=== PATIENT | male | born 1955 | race Hispanic/Latino ===

== ENCOUNTER 2019-03-02 06:32 | Day surgery (SDC) | payer OTHER ==
[2019-02-25 10:01] LABS: Absolute Monocytes 0.5 K/uL (0.1-1.3); Absolute Neutrophil 3.4 K/uL (1.8-8.0); Basophils % 0.4 % (0-1.3); Eosinophils % 1.1 % (0-4.4); Hematocrit 49.6 % (39.6-49.0); Lymphocytes % 19.5 % (15.3-44.8); MPV 8.1 fL (7.6-11.3); Monocytes % 10.4 % (3.3-12.3); RBC Red Blood Cell Count 5.52 M/uL (4.33-5.43)
[2019-02-25 10:06] LABS: Protime INR 1.02
[2019-02-25 10:20] LABS: Potassium 4.3 mmol/L (3.5-5.1)
--- NOTE | 2019-02-25 12:49 | EKG ---
Test Date: 2019-02-25 Test Time: 08:54:40 Hamper Maker: BEAU MEASUREMENT RESULTS: Intervals: Rate: 60 MA: 178 QRSD: 86 QT: 398 QTc: 398 [place]: P: 61 MA: 178 QRS: 43 T: 47 INTERPRETIVE STATEMENTS: Normal sinus rhythm Normal ECG Compared to ECG 01/06/1992 10:31:00 No significant changes Electronically Signed On 02-25-19 12:48:05 CDT by Sanjay Mujica
--- OUTSIDE RECORDS SUMMARY | 2019-03-02 06:36 | XMS REPORT ---
:1955 Author Organization eClinicalWorks Care Team Providers Name Role Phone Fabio Garcia Provider Role Unavailable Allergies No Known Allergies Problems Problem Type Condition Code Onset Dates Condition Status Problem Primary osteoarthritis of left knee M17.12 Active Problem Loose body in knee, left knee M23.42 Active Medications Medication Code System Code Instructions Start End Date Status Dosage Date [facility] [place] 11289399700 7.5-325 MG February 24, March 06, Active 1 tablet Orally every 2018 as needed hrs Results No Known Results Summary Purpose eClinicalWorks Submission
--- OUTSIDE RECORDS SUMMARY | 2019-03-02 06:36 | XMS REPORT ---
:1955 Author Organization eClinicalWorks Care Team Providers Name Role Phone Fabio Garcia Provider Role Unavailable Allergies No Known Allergies Problems Problem Type Condition Code Onset Dates Condition Status Problem Primary osteoarthritis of left knee M17.12 Active Medications No Known Medications Results No Known Results Summary Purpose eClinicalWorks Submission
--- OUTSIDE RECORDS SUMMARY | 2019-03-02 06:36 | XMS REPORT ---
:1955 Author Organization eClinicalWorks Care Team Providers Name Role Phone Fabio Garcia Provider Role Unavailable Allergies, Adverse Reactions, Alerts Substance Reaction Event Type N.K.D.A. Info Not Available Non Drug Allergy Problems Problem Type Condition Code Onset Dates Condition Status Problem Primary osteoarthritis of left M17.12 Active knee Problem Loose body in knee, left knee M23.42 Active Assessment Tear of medial meniscus of left S83.242A Active knee, current, unspecified tear type, initial encounter Assessment Loose body in knee, left knee M23.42 Active Assessment Pain, joint, knee, left M25.562 Active Assessment Primary osteoarthritis of left M17.12 Active knee Medications Medication Code Code Instructions Start End Status Dosage System Date Date MetFORMIN HCl ER [facility] 05673395820 750 MG Orally b , Active 1 tablet Once a day 2019 with evening meal Aspir-81 ND 27490003058 81 MG Orally b , Active 1 tablet Once a day 2019 Testosterone ND 83056273773 200 MG/ML Active not Cypionate Intramuscular defined GlipiZIDE ER ND 53375790049 5 MG Oral Active not defined Losartan ND 09873077744 50-12.5 MG b 25, Active 1 tablet Potassium-HCTZ Orally Once a 2019 day Results No Known Results Summary Purpose eClinicalWorks Submission
--- OUTSIDE RECORDS SUMMARY | 2019-03-02 06:36 | XMS REPORT ---
:1955 Author Organization eClinicalWorks Care Team Providers Name Role Phone Fabio Garcia Provider Role Unavailable Allergies, Adverse Reactions, Alerts Substance Reaction Event Type N.K.D.A. Info Not Available Non Drug Allergy Problems Problem Type Condition Code Onset Dates Condition Status Assessment Pain, joint, knee, left M25.562 Active Problem Primary osteoarthritis of left M17.12 Active knee Assessment Primary osteoarthritis of left M17.12 Active knee Assessment Tear of medial meniscus of left S83.242A Active knee, current, unspecified tear type, initial encounter Medications Medication Code Code Instructions Start End Status Dosage System Date Date MetFORMIN HCl ER [facility] 22668742883 750 MG Orally b , Active 1 tablet Once a day 2019 with evening meal Aspir-81 ND 46089983959 81 MG Orally Jan 24, Active 1 tablet Once a day 2019 Testosterone ND 72408845525 200 MG/ML Active not Cypionate Intramuscular defined GlipiZIDE ER ND 66114012617 5 MG Oral Active not defined Losartan ND 86816170591 50-12.5 MG b , Active 1 tablet Potassium-HCTZ Orally Once a 2019 day Results Name Result Date Reference Range Unit Abnormality Flag MRI : Knee, left Summary Purpose eClinicalWorks Submission
[2019-03-02] MEDS ORDERED: CEFAZOLIN/SWI 1gm 1 GM/10 ML SYR ONE ×2 (07:00→08:03)
[2019-03-02] MEDS ORDERED: NA CHLORIDE 0.9% 1,000 ML ONE ×2 (07:00→08:25)
[2019-03-02] MEDS ORDERED: DEXAMETHASONE 10 MG/ML VIAL ONE (07:19)
[2019-03-02] MEDS ORDERED: LIDOCAINE 2% MPF 5 ML VIAL ONE (07:19)
[2019-03-02] MEDS ORDERED: FENTANYL CITR 100 MCG/2 ML ONE (07:19)
[2019-03-02] MEDS ORDERED: PROPOFOL 200 MG/20 ML VIAL IV ONE (07:19)
[2019-03-02] MEDS ORDERED: MIDAZOLAM HCL 2 MG/2 ML INJ ONE (07:19)
[2019-03-02] MEDS: BUPIVACAINE 0.25% PF 10 ML VIAL ONE ×2 (07:59→08:32)
[2019-03-02] MEDS ORDERED: KETOROLAC 30 MG/ML INJ ONE (08:43)
--- NOTE | 2019-03-02 08:52 | P.BOP ---
Preoperative diagnosis: left knee medial meniscus tear, left knee loose body with osteoarthritis Postoperative diagnosis: same Primary procedure: left knee arthroscopic partial medial meniscectomy Secondary procedure: left knee arthroscopic removal of loose body Pearl Cutter: NONE,NONE Estimated blood loss: 5 cc Specimen: none Findings: see dictation Anesthesia: General Complications: None Implants: none Fluids & blood products: per anesthesia; TT: 42 mins @ 300 mmHg Transferred to: Recovery Room Condition: Good
[2019-03-02] MEDS ORDERED: Ringers Lactate 0 ML IV ONE (09:06)
[2019-03-02] MEDS ORDERED: HYDROCODONE/APAP 5/325 MG TAB ONE (09:43)
--- NOTE | 2019-03-02 20:28 | OP ---
Date of Procedure: 03/02/2019 Surgeon: Fabio Garcia MD Preoperative Diagnoses: 1.Left knee medial meniscus tear. 2.Left knee intraarticular loose body. Preoperative Diagnoses: 1.Left knee medial meniscus tear. 2.Left knee intraarticular loose body. Procedures Performed: 1.Left knee arthroscopic partial medial meniscectomy. 2.Left knee arthroscopic removal of loose body. Anesthesia: General LMA. Fluids: Per Anesthesia record. Estimated Blood Loss: Less than 5 cc. Tourniquet Time: 42 minutes at 300 mmHg. Indication For Procedure: Oskar is a 64-year-old male, who presented to my clinic with signs and sympt oms consistent with a medial meniscus tear as well as intra-articular loose body. MRI demonstrated l oose body found within the suprapatellar pouch. I discussed with the patient at length risks and kiki efits associated with operative and nonoperative treatment. Given his mechanical symptoms and loose body demonstrated on MRI, I recommended operative treatment. He expressed understanding and has elec anselmo to proceed with surgical treatment. Description Of Procedure: After informed consent was obtained, the patient was identified in the pre operative holding area. The left lower extremity was marked. The patient was then taken back to the operating room, transferred to the operative table in supine fashion, placed under general LMA anest hesia. The left lower extremity was then prepped and draped in usual sterile fashion. A time-out wa s initiated. The correct patient and procedure were confirmed and identified. The patient did recei ve his preoperative prophylactic antibiotics. The left lower extremity was exsanguinated using an Es march and the tourniquet was inflated to 300 mmHg. Standard anteromedial and anterior lateral portal s were created. Arthroscope was brought into the anterolateral portal and a diagnostic arthroscopy w as performed. The arthroscope was first brought into the patellofemoral joint where the patient was noted to have grade 3-4 chondromalacic changes of the trochlear groove and undersurface of the patell a. The arthroscope was brought into medial gutter. There were no loose bodies found within the gutt er. The arthroscope was then brought into the medial compartment. The patient was noted to have gra de 3 chondromalacic changes noted of his medial femoral condyle and medial tibial plateau. There was a complex tear of the posterior horn of the medial meniscus. A partial medial meniscectomy was perf ormed using meniscal biters and arthroscopic shaver to smooth meniscal borders. Next, the arthroscop e was brought in the intercondylar notch. The patient was noted to have an intact ACL and PCL. The arthroscope was then brought in the lateral compartment where the patient was noted to have an intact lateral meniscus, and no significant chondromalacia changes over the lateral femoral condyle and lat eral tibial plateau. The arthroscope was then brought in the lateral gutter where the patient was no anselmo to have a loose body. The arthroscope was then brought through the anterior medial portal and us ing an arthroscopic grasper, the loose body was then removed through the anterolateral portal. It wa s measured as approximately 2 x 1 cm in size. Wounds were then irrigated thoroughly with normal sali ne. Local anesthetic was then applied around the incision and portals were approximated using a 3-0 Monocryl. Sterile dressings were applied. The patient was awakened and transferred back in stable c ondition. Postoperative Plan: The patient will follow up in my clinic next week for wound check. Physical the rapy will be consulted, and he will proceed with therapy using the patellofemoral protocol. RANDALL/ALEJANDRO Voice ID: [id number] Report ID: [id number]
== END 2019-03-02 10:20 | disposition home or self-care (01) ==
LOC: OR 06:32
PROVIDERS: ATTEND Orthopaedic Surgery Sports Medicine
PROC: 0SBD4ZZ Excision of Left Knee Joint, Percutaneous Endoscopic Approach (ICD-10-PCS; principal; 2019-03-02 07:30)
DX: S83.232A Complex tear of medial meniscus, current injury, left knee, initial encounter (principal); X58.XXXA Exposure to other specified factors, initial encounter; M23.42 Loose body in knee, left knee; M94.29 Chondromalacia, multiple sites; M17.12 Unilateral primary osteoarthritis, left knee; E11.9 Type 2 diabetes mellitus without complications; I10 Essential (primary) hypertension; Z79.84 Long term (current) use of oral hypoglycemic drugs; Z79.82 Long term (current) use of aspirin; Z79.899 Other long term (current) drug therapy
CPT/HCPCS: 29881; 93005; 85025; 80048; 36415; 85610; 82962 ×2; 85730; J2704; J2250; J3010; J1100; J0690 ×2; J7030 ×2

== ENCOUNTER 2022-07-16 22:05 | Observation (INO) | payer OTHER ==
--- OUTSIDE RECORDS SUMMARY | 2022-07-16 22:08 | XMS REPORT | Continuity of Care Document ---
:1955 Author Organization [facility] t Address [address] [place] [address] Care Team Providers Name Role Phone Mikey Samuel Attending Clinician Unavailable Problems This patient has no known problems. Allergies, Adverse Reactions, Alerts This patient has no known allergies or adverse reactions. Medications Ordered Filled Start Stop Current Ordering Indication Dosage Frequency Signature Comments Components Source Medication Medication Date Date Medication? Clinician (SIG) Name Name Robbie Avalos [id number] 2019- No Fabio 1 tablet Com mon 02-24 04-07 Garcia as needed [facility] 00:00: 00:00 - [facility] :00 [facility] MetFORMIN MetFORMIN 2018-0 Yes Fabio 1 tablet Common HCl ER HCl ER 2-25 Garcia with Spirit 00:00: evening - [facility] 00 meal [facility] Aspir-81 Aspir-81 2019-0 Yes Fabio 1 tablet Common 2-25 Garcia [facility] 00:00: - [facility] 00 [facility] Losartan Losartan 2019-0 Yes Fabio 1 tablet Common Potassium-H Potassium-H 2-25 Garcia S pirit CTZ CTZ 00:00: - [facility] 00 [facility] Testosteron Testosteron Yes Fabio not Common e Cypionate e Cypionate Garcia defined [facility] GlipiZIDE GlipiZIDE Yes Fabio not Co mmon ER ER Garcia defined [facility] Victoza Victoza Yes Fabio not Common Garcia defined [facility] Procedures This patient has no known procedures. Encounters Start End Encounter Admission Attending Care Care Encounter Source Date/Time Date/Time Type Type Clinicians Facility Department ID 2022-01-01 Outpatient Samuel, STLMLC STLMLC [id number] Common 10:55:01 Mikey [facility] 2021-12-30 Outpatient Samuel, STLMLC STLMLC [id number] Common 15:07:00 Mikey [facility] 2021-12-25 Outpatient Samuel, STLMLC STLMLC [id number] Common 14:23:14 Mikey [id number] [facility] 2021-12-25 Outpatient Samuel, STLMLC STLMLC [id number] Common 14:20:39 Mikey [id number] [facility] 2021-12-25 Outpatient Samuel, STLMLC STLMLC [id number] Common 13:13:26 Mikey [id number] [facility] 2021-12-25 Outpatient Samuel, STLMLC STLMLC [id number] Common 12:51:29 Mikey [id number] [facility] 2022-06-18 2022-06-18 ambulatory STLMLC STLMLC [id number] Common 00:00:00 00:00:00 [facility] 2022-06-11 2022-06-11 ambulatory STLMLC STLMLC [id number] Common 00:00:00 00:00:00 [facility] 2021-12-31 2021-12-31 ambulatory STLMLC STLMLC [id number] Common 00:00:00 00:00:00 [facility] 2021-12-23 2021-12-23 ambulatory STLMLC STLMLC [id number] Common 00:00:00 00:00:00 [facility] 2021-12-12 2021-12-12 ambulatory STLMLC STLMLC [id number] Common 00:00:00 00:00:00 [facility] 2021-11-25 2021-11-25 ambulatory STLMLC STLMLC [id number] Common 00:00:00 00:00:00 [facility] 2021-11-14 2021-11-14 ambulatory STLMLC STLMLC [id number] Common 00:00:00 00:00:00 [facility] 2021-11-13 2021-11-13 ambulatory STLMLC STLMLC [id number] Common 00:00:00 00:00:00 [facility] 2021-11-07 2021-11-07 ambulatory STLMLC STLMLC [id number] Common 00:00:00 00:00:00 [facility] 2021-11-05 2021-11-05 ambulatory STLMLC STLMLC [id number] Common 00:00:00 00:00:00 [facility] 2021-10-31 2021-10-31 ambulatory STLMLC STLMLC [id number] Common 00:00:00 00:00:00 [facility] 2021-10-17 2021-10-17 ambulatory STLMLC STLMLC [id number] Common 00:00:00 00:00:00 [facility] 2021-10-02 2021-10-02 ambulatory STLMLC STLMLC [id number] Common 00:00:00 00:00:00 [facility] 2021-09-04 2021-09-04 ambulatory STLMLC STLMLC [id number] Common 00:00:00 00:00:00 [facility] 2021-08-15 2021-08-15 Outpatient STLMLC STLMLC [id number] Common 00:00:00 00:00:00 [facility] 2021-08-01 2021-08-01 ambulatory STLMLC STLMLC [id number] Common 00:00:00 00:00:00 [facility] 2021-07-10 2021-07-10 Outpatient STLMLC STLMLC [id number] Common 00:00:00 00:00:00 [facility] 2021-07-10 2021-07-10 Outpatient STLMLC STLMLC [id number] Common 00:00:00 00:00:00 [facility] 2021-07-02 2021-07-02 Outpatient STLMLC STLMLC [id number] Common 00:00:00 00:00:00 [facility] 2021-06-25 2021-06-25 Outpatient STLMLC STLMLC [id number] Common 00:00:00 00:00:00 [facility] 2021-06-17 2021-06-17 Outpatient STLMLC STLMLC [id number] Common 00:00:00 00:00:00 [facility] 2021-05-15 2021-05-15 Outpatient STLMLC STLMLC [id number] Common 00:00:00 00:00:00 [facility] 2021-05-09 2021-05-09 Outpatient STLMLC STLMLC [id number] Common 00:00:00 00:00:00 [facility] 2021-04-01 2021-04-01 Outpatient STLMLC STLMLC [id number] Common 00:00:00 00:00:00 [facility] 2019-04-11 2019-04-11 [id number] Common 16:12:00 16:12:00 [facility] 2019-04-11 2019-04-11 [facility] [id number] Common 13:28:00 13:28:00 [facility] 2019-04-11 2019-04-11 [facility] [id number] Common 08:30:00 08:30:00 [facility] 2019-03-14 2019-03-14 [facility] [id number] Common 09:48:00 09:48:00 [facility] 2019-03-11 2019-03-11 [facility] [id number] Common 08:00:00 08:00:00 [facility] 2019-02-24 2019-02-24 Outpatient José Antonio Espinoza [id number] Common 09:18:00 09:18:00 [facility] 2019-02-03 2019-02-03 Outpatient José Antonio Espinoza [id number] Common 09:30:00 09:30:00 [facility] 2019-01-25 2019-01-25 Outpatient José Antonio Espinoza [id number] Common 10:43:00 10:43:00 [facility] 2019-01-24 2019-01-24 Outpatient José Antonio Espinoza [id number] Common 10:00:00 10:00:00 [facility] Results This patient has no known results.
[2022-07-17 00:22] LABS: Absolute Lymphocytes (CBC) 1.2 K/uL (0.7-4.9); Hematocrit 47.2 % (39.6-49.0); Lymphocytes % 27.9 % (15.3-44.8); MCV 89.3 fL (80-100); RBC Red Blood Cell Count 5.29 M/uL (4.33-5.43)
[2022-07-17 00:36] LABS: SARS-CoV-2 Antigen Rapid Res Negative (Negative)
[2022-07-17 00:41] LABS: Protime INR 1.03
[2022-07-17 01:14] LABS: Troponin High Sensitivity 7.8 pg/mL (<58.9)
--- NOTE | 2022-07-17 01:14 | ER ---
Nurse's Notes [facility] Name: Oskar Phillips Age: 67 yrs Sex: Male : 1955 Arrival Date: 07/16/2022 Time: 22:11 Bed 20 Private MD: Diagnosis: Chest pain, unspecified Presentation: 07/16 22:24 Chief complaint: Patient states: Im having chest pain and shortness of breath and i kd3 feel some numbness on the right side of my face. It started about an hour ago. I have never felt something like this before. No history of heart issues. Coronavirus screen: Vaccine status: Patient reports receiving the 2nd dose of the covid vaccine. Ebola Screen: No symptoms or risks identified at this time. Initial Sepsis Screen: Does the patient meet any 2 criteria? No. Patient's initial sepsis screen is negative. Does the patient have a suspected source of infection? No. Patient's initial sepsis screen is negative. Risk Assessment: Do you want to hurt yourself or someone else? Patient reports no desire to harm self or others. Onset of symptoms was July 16, 2022. 22:24 Method Of Arrival: Ambulatory kd3 22:24 Acuity: FRANK 3 kd3 Triage Assessment: 22:27 General: Appears in no apparent distress. Behavior is calm, cooperative. Pain: kd3 Complains of pain in anterior aspect of right upper chest Pain does not radiate. Pain radiates to right jaw. Cardiovascular: Patient's skin is warm and dry. Historical: - Allergies: 22:27 No Known Allergies; kd3 - Home Meds: 22:27 Metformin Oral [Active]; irbesartan oral [Active]; atorvastatin oral [Active]; kd3 tamsulosin oral [Active]; Centrum Silver oral [Active]; Thaddeus Aspirin oral [Active]; - PMHx: 22:27 Diabetes mellitus; Hypercholesterolemia; Hypertensive disorder; kd3 - Immunization history:: Adult Immunizations up to date. - Social history:: Smoking status: Patient denies any tobacco usage or history of. - Family history:: not pertinent. - Hospitalizations: : No recent hospitalization is reported. Screenin:30 Abuse screen: Denies threats or abuse. Denies injuries from another. Nutritional kd3 screening: No deficits noted. Tuberculosis screening: No symptoms or risk factors identified. Fall Risk None identified. Assessment: 22:35 General: Appears in no apparent distress. comfortable, Behavior is calm, cooperative. lg3 Pain: Complains of pain in chest Pain radiates to face and right jaw and anterior aspect of right upper chest Quality of pain is described as heavy, pressure, tingling, Pain began 1 hour ago. Neuro: No deficits noted. Level of Consciousness is awake, alert, obeys commands, Oriented to person, place, time, situation. Cardiovascular: No deficits noted. Reports chest pain, shortness of breath, Heart tones S1 S2 present. Respiratory: No deficits noted. Reports shortness of breath Breath sounds are clear bilaterally. GI: No deficits noted. No signs and/or symptoms were reported involving the gastrointestinal system. Abdomen is round non-distended, Abd is soft and non tender X 4 quads. : No deficits noted. No signs and/or symptoms were reported regarding the genitourinary system. EENT: No deficits noted. No signs and/or symptoms were reported regarding the EENT system. Derm: No deficits noted. No signs and/or symptoms reported regarding the dermatologic system. Skin is intact, is healthy with good turgor, Skin is dry, Skin temperature is warm. Musculoskeletal: No deficits noted. No signs and/or symptoms reported regarding the musculoskeletal system. Circulation, motion, and sensation intact. Range of motion: intact in all extremities. 23:25 Reassessment: Patient appears in no apparent distress at this time. No changes from ha1 previously documented assessment. Patient and/or family updated on plan of care and expected duration. Pain level reassessed. Patient is alert, oriented x 3, equal unlabored respirations, skin warm/dry/pink. 23:25 Reassessment: Patient denies pain at this time. [facility] 07/17 00:40 Reassessment: Patient appears in no apparent distress at this time. No changes from ha1 previously documented assessment. Patient and/or family updated on plan of care and expected duration. Pain level reassessed. Patient is alert, oriented x 3, equal unlabored respirations, skin warm/dry/pink. 01:30 Reassessment: Patient appears in no apparent distress at this time. Patient and/or ha1 family updated on plan of care and expected duration. Pain level reassessed. Patient is alert, oriented x 3, equal unlabored respirations, skin warm/dry/pink. Patient denies pain at this time. 02:25 Reassessment: Patient appears in no apparent distress at this time. No changes from ha1 previously documented assessment. Patient and/or family updated on plan of care and expected duration. Pain level reassessed. Patient is alert, oriented x 3, equal unlabored respirations, skin warm/dry/pink. 03:22 Reassessment: No changes from previously documented assessment. Patient and/or family ha1 updated on plan of care and expected duration. Pain level reassessed. Patient is alert, oriented x 3, equal unlabored respirations, skin warm/dry/pink. Vital Signs: 07/16 22:24 Pulse 75; Resp 18; Temp 98.5; Pulse Ox 96% on R/A; Weight 97.52 kg; Height 5 ft. 9 in. kd3 (175.26 cm); Pain 5/10; 22:30 BP 129 / 66; kd3 22:31 Pulse Ox 97% on R/A; kd3 22:38 BP 145 / 83; Pulse 62; Resp 16 S; Pulse Ox 95% on R/A; lg3 23:30 BP 129 / 82; Pulse 52; Resp 18 S; Pulse Ox 95% on R/A; ha1 07/17 03:10 BP 110 / 83 Sitting; Pulse 53; Resp 19 S; Pulse Ox 96% on R/A; ha1 07/16 22:24 Body Mass Index 31.75 (97.52 kg, 175.26 cm) kd3 ED Course: 07/16 22:11 Patient arrived in ED. ja2 22:18 Steve Flowers MD is Attending Physician. rn 22:27 Triage completed. kd3 22:30 Arm band placed on left wrist. kd3 22:31 No provider procedures requiring assistance completed. Patient maintains SpO2 kd3 saturation greater than 95% on room air. 22:34 Pura Khan, ALISIA is Primary Nurse. lg3 22:35 Patient has correct armband on for positive identification. Placed in gown. Bed in low lg3 position. Call light in reach. Side rails up X 1. Client placed on continuous cardiac and pulse oximetry monitoring. NIBP monitoring applied. threat monitoring analyst on. Door closed. Noise minimized. Warm blanket given. Family accompanied patient. 22:57 XRAY Chest (1 view) In Process Unspecified. EDMS 23:52 D-Dimer Sent. lg3 23:52 SARS-COV-2 Antigen Rapid Sent. lg3 23:52 Basic Metabolic Panel Sent. lg3 23:52 CBC with Diff Sent. lg3 23:52 NT PRO-BNP Sent. lg3 23:52 PT-INR Sent. lg3 23:52 Troponin HS Sent. lg3 23:53 Inserted saline lock: 20 gauge in right antecubital area, using aseptic technique. vc1 Blood collected. 07/17 00:31 CT Aorta for Dissection In Process Unspecified. EDMS 01:13 Shira Samuel MD is Hospitalizing Provider. rn 01:30 Warm blanket given. ha1 05:09 Patient admitted, IV remains in place. intact, No redness/swelling at site. lg3 Administered Medications: 03:09 Drug: Aspirin Chewable Tablet 81 mg Route: PO; ha1 03:46 Follow up: Response: No adverse reaction ha1 Medication: 07/16 22:30 VIS not applicable for this client. kd3 Outcome: 07/17 01:13 Decision to Hospitalize by Provider. rn 05:09 Admitted to ER Hold. Please see [facility] for further documentation. lg3 05:09 Condition: stable 05:09 Instructed on the need for admit, Demonstrated understanding of instructions. 07:38 Patient left the ED. jh6 Signatures: Dispatcher [employer] Steve Denton MD MD rn Gibson, Lacie RN RN lg3 Romelia eDlgadillo Kyli, RN RN kd3 Michelle Lindsey RN RN jh6 Shirley Dubon RN RN 1 Nany Victoria RN RN ha1 Corrections: (The following items were deleted from the chart) 03:48 03:14 Reassessment: ha1 ha1 03:48 03:14 Reassessment: Patient appears in no apparent distress at this time. No changes ha1 from previously documented assessment. Patient and/or family updated on plan of care and expected duration. Pain level reassessed. Patient is alert, oriented x 3, equal unlabored respirations, skin warm/dry/pink. ha1
--- NOTE | 2022-07-17 01:14 | EDPHYS ---
Physician Documentation [facility] Name: Oskar Phillips Age: 67 yrs Sex: Male : 1955 Arrival Date: 07/16/2022 Time: 22:11 Bed 20 Private MD: ED Physician Steve Flowers HPI: 07/16 23:29 This 67 yrs old Male presents to ER via Ambulatory with complaints of Chest rn Pain, Chest Tightness, Arm Pain, Numbness Of Arm, Neck Pain, <24hrs Old. 23:29 The patient or guardian reports chest pain that is located primarily in the substernal rn area. Onset: 1 hour(s) ago. The pain radiates to the right shoulder, right neck. Associated signs and symptoms: Pertinent positives: shortness of breath, Pertinent negatives: abdominal pain, cough, diaphoresis, lower extremity swelling, lightheadedness, palpitations. The chest pain is described as a heaviness. Duration: The patient or guardian reports multiple episodes, that are intermittent. Modifying factors: The symptoms are alleviated by nothing. the symptoms are aggravated by nothing. Severity of pain: At its worst the pain was moderate in the emergency department the pain has resolved. The patient has not experienced similar symptoms in the past. The patient has been recently seen by a physician:. Pt reports seen by Dr. Thurston and plan was for cardiac cath tomorrow. Pain started tonight so came in. Denies previous chest pain. . Historical: - Allergies: 22:27 No Known Allergies; kd3 - Home Meds: 22:27 Metformin Oral [Active]; irbesartan oral [Active]; atorvastatin oral [Active]; kd3 tamsulosin oral [Active]; Centrum Silver oral [Active]; Thaddeus Aspirin oral [Active]; - PMHx: 22:27 Diabetes mellitus; Hypercholesterolemia; Hypertensive disorder; kd3 - Immunization history:: Adult Immunizations up to date. - Social history:: Smoking status: Patient denies any tobacco usage or history of. - Family history:: not pertinent. - Hospitalizations: : No recent hospitalization is reported. ROS: 23:29 Constitutional: Negative for fever, chills, and weight loss, Eyes: Negative for injury, rn pain, redness, and discharge, Neck: Negative for injury, pain, and swelling, Cardiovascular: + chest pain Respiratory: Negative for shortness of breath, cough, wheezing, and pleuritic chest pain, Abdomen/GI: Negative for abdominal pain, nausea, vomiting, diarrhea, and constipation, Back: Negative for injury and pain, MS/Extremity: Negative for injury and deformity, Skin: Negative for injury, rash, and discoloration, Neuro: Negative for headache, weakness, numbness, tingling, and seizure. Exam: 22:42 ECG was reviewed by the Attending Physician. rn 23:29 Constitutional: This is a well developed, well nourished patient who is awake, alert, rn and in no acute distress. Head/Face: Normocephalic, atraumatic. Eyes: Periorbital areas with no swelling, redness, or edema. Cardiovascular: Regular rate and rhythm. No gallops, murmurs, or rubs. No JVD. No pulse deficits. Respiratory: No increased work of breathing, no retractions or nasal flaring. Abdomen/GI: Soft, non-tender Skin: Warm, dry with normal turgor. Normal color with no rashes, no lesions, and no evidence of cellulitis. MS/ Extremity: Pulses equal, no cyanosis. Neurovascular intact. Full, normal range of motion. Equal circumference. Neuro: Awake and alert, GCS 15 Vital Signs: 22:24 Pulse 75; Resp 18; Temp 98.5; Pulse Ox 96% on R/A; Weight 97.52 kg; Height 5 ft. 9 in. kd3 (175.26 cm); Pain 5/10; 22:30 BP 129 / 66; kd3 22:31 Pulse Ox 97% on R/A; kd3 22:38 BP 145 / 83; Pulse 62; Resp 16 S; Pulse Ox 95% on R/A; lg3 23:30 BP 129 / 82; Pulse 52; Resp 18 S; Pulse Ox 95% on R/A; ha1 07/17 03:10 BP 110 / 83 Sitting; Pulse 53; Resp 19 S; Pulse Ox 96% on R/A; ha1 07/16 22:24 Body Mass Index 31.75 (97.52 kg, 175.26 cm) kd3 MDM: 07/16 22:18 Patient medically screened. rn 07/17 01:12 Differential diagnosis: acute myocardial infarction, acute pericarditis, coronary rn artery disease costochondritis, esophagitis, gastritis, pericarditis, pleurisy, pneumothorax, pulmonary embolus, stable angina, thoracic aortic disection, unstable angina. Data reviewed: vital signs, nurses notes, lab test result(s), EKG, radiologic studies, plain films, and as a result, I will admit patient. Counseling: I had a detailed discussion with the patient and/or guardian regarding: the historical points, exam findings, and any diagnostic results supporting the discharge/admit diagnosis, lab results, radiology results, the need for further work-up and treatment in the hospital. Admission orders: after a detailed discussion of the patient's condition and case, the admit orders are written by me. 07/16 22:23 Order name: Basic Metabolic Panel; Complete Time: 02:24 rn 07/16 22:23 Order name: CBC with Diff; Complete Time: 00:32 rn 07/16 22:23 Order name: NT PRO-BNP; Complete Time: 02:24 rn 07/16 22:23 Order name: PT-INR; Complete Time: 00:57 07/16 22:23 Order name: Troponin HS; Complete Time: 02:24 rn 07/16 22:23 Order name: SARS-COV-2 Antigen Rapid; Complete Time: 00:37 07/16 22:23 Order name: XRAY Chest (1 view) rn 07/16 22:23 Order name: EKG; Complete Time: 22:29 rn 07/16 22:23 Order name: Cardiac monitoring; Complete Time: 23:52 07/16 22:23 Order name: D-Dimer; Complete Time: 00:57 rn 07/16 22:42 Order name: CT Aorta for Dissection rn 07/17 03:37 Order name: CREATININE WHOLE BLOOD; Complete Time: 06:45 EDAL 07/17 06:45 Order name: Troponin High Sensitivity [facility] 07/16 22:23 Order name: EKG - Nurse/Tech; Complete Time: 22:46 rn 07/16 22:23 Order name: IV Saline Lock; Complete Time: 23:52 rn 07/16 22:23 Order name: Labs collected and sent; Complete Time: 23:52 rn 07/16 22:23 Order name: O2 Per Protocol; Complete Time: 23:52 rn 07/16 22:23 Order name: O2 Sat Monitoring; Complete Time: 23:52 rn EC/17 22:42 Rate is 53 beats/min. Rhythm is regular. QRS [place] is Normal. [place] interval is normal. QRS rn interval is normal. QT interval is normal. No Q waves. T waves are Normal. No ST changes noted. Clinical impression: Sinus bradycardia. Interpreted by me. Reviewed by me. Administered Medications: 07/17 03:09 Drug: Aspirin Chewable Tablet 81 mg Route: PO; ha1 03:46 Follow up: Response: No adverse reaction ha1 Disposition Summary: 07/17/22 01:13 Hospitalization Ordered Hospitalization Status: Observation rn Provider: Shira Samuel rn Condition: Stable rn Problem: new rn Symptoms: have improved rn Bed/Room Type: Standard rn Location: [facility] ER HOLD(07/17/22 02:49) Room Assignment: ERHOLD-(07/17/22 02:49) Diagnosis - Chest pain, unspecified rn Forms: - Medication Reconciliation Form rn - SBAR form rn Signatures: Dispatcher [employer] EDSteve Saleem MD MD rn Garcia, Cindy RN RN Charlene Virk RN ALISIA [facility] Nany Victoria, RN RN 1 Corrections: (The following items were deleted from the chart) 02:49 01:13 Telemetry/MedSurg (observation) rn cg 02:49 01:13 rn cg
[2022-07-17] MEDS ORDERED: ASPIRIN 81 MG CHEWABLE TABLET ONE (03:10)
[2022-07-17] MEDS ORDERED: ONDANSETRON 4 MG/2 ML VIAL IV PRN (04:03)
[2022-07-17] MEDS ORDERED: MORPHINE 4 MG/ML SYR IV PRN (04:03)
[2022-07-17 04:16] VITALS: BMI 31.7
[2022-07-17] MEDS ORDERED: LORAZEPAM 1 MG TABLET ONE (07:21)
[2022-07-17] MEDS ORDERED: DIAZEPAM 10 MG/2 ML INJ SYRINGE ONE (07:27)
[2022-07-17] MEDS ORDERED: DIAZEPAM 10 MG/2 ML INJ SYRINGE IV ONE (07:34)
[2022-07-17] MEDS ORDERED: PNEUMOCOCCAL VACCINE 0.5 ML IMVAC ONE (08:00)
--- NOTE | 2022-07-17 08:01 | RAD REPORT ---
EXAM DESCRIPTION: MRI - C Spine Wo Cont - 07/17/2022 7:38 am CLINICAL HISTORY: Numbness COMPARISON: 2020 TECHNIQUE: Magnetic resonance imaging of the cervical spine was obtained. Sagittal and axial images completed. FINDINGS: Disc bulge C2-3. Thecal sac measures 9.5 millimeters. Mild narrowing right neural foramina Anterior plate screws have been placed C3 to C5. Mild spondylosis C3-4. 12 x 4 x 9 millimeter right paracentral disc osteophyte complex C4-5 which extends inferiorly. There is some compression upon the spinal cord. Facet hypertrophy is present. Moderate to marked narrowing of the left neural foramina. Moderate left paracentral disc osteophyte complex C5-6. Mild spondylosis C6-7 C7-T1 are unremarkable Spinal cord demonstrates normal signal. IMPRESSION: 12 millimeter right paracentral disc osteophyte complex C4. Disc extends inferiorly. Moderate left paracentral disc osteophyte complex C5-6
[2022-07-17] MEDS ORDERED: NA CHLORIDE 0.9% 500 ML ONE (08:42)
[2022-07-17] MEDS ORDERED: FENTANYL CITR 100 MCG/2 ML ONE (09:03)
[2022-07-17] MEDS ORDERED: MIDAZOLAM HCL 2 MG/2 ML INJ ONE (09:04)
[2022-07-17] MEDS ORDERED: NA CHLORIDE 0.9% 50 ML IV ONE (09:04)
[2022-07-17] MEDS ORDERED: ATROPINE SULF 1 MG/10 ML SYR IV ONE (09:04)
[2022-07-17] MEDS ORDERED: HEPA 1000U/500MLS 1,000 UNIT/500 ML BAG IV ONE (09:31)
[2022-07-17] MEDS ORDERED: lisinopriL 20 MG TAB ONE (09:42)
[2022-07-17] MEDS ORDERED: ENOXAPARIN 80 MG/0.8 ML SQ ONE (09:43)
[2022-07-17] MEDS ORDERED: ASPIRIN EC 81 MG TAB PO ONE (09:43)
[2022-07-17] MEDS ORDERED: LIDOCAINE 1% MPF 30 ML VIAL ONE (09:51)
[2022-07-17] MEDS ORDERED: NALOXONE 0.4 MG/ML VIAL ONE (09:55)
[2022-07-17] MEDS ORDERED: PRASUGREL (EFFIENT) 10 MG TAB ONE (10:31)
--- NOTE | 2022-07-17 10:37 | RAD REPORT ---
EXAM DESCRIPTION: RAD - Chest Single View - 07/16/2022 10:55 pm CLINICAL HISTORY: 7 years Male, CHEST PAIN COMPARISON: Chest radiograph dated 05/08/2022 IMPRESSION: Chronic lung changes. No focal consolidation. No pleural effusion. No pneumothorax. Elevation of the left hemidiaphragm. Cardiomediastinal silhouette is within normal limits. No acute osseous abnormality. Electronically signed by: Jim Weathers DO 07/16/2022 11:21 PM CDT Due to temporary technical issues with the PACS/Fluency reporting system, reports are being signed by the in house radiologists without review as a courtesy to insure prompt reporting. The interpreting radiologist is fully responsible for the content of the report.
[2022-07-17] MEDS ORDERED: ASPIRIN 325 MG TAB ONE (10:40)
[2022-07-17] MEDS ORDERED: NA CHLORIDE 0.9% 1,000 ML IV SCH (11:00)
--- NOTE | 2022-07-17 12:56 | OP ---
Date of Procedure: 07/17/2022 Surgeon: Michale Thurston MD History Faculty Member: Ms. Viktoriya Atkinson. The patient can go home today in about 6 hours. I will discuss the case further with Dr. Samuel. When he goes home, he should be on his home medication plus Plavix 75 mg daily. The patient admitted to Dr. Samuel's service on 07/17/2022 with unstable angina. The patient has a his tory of diabetes and dyslipidemia. He was actually scheduled to have an outpatient heart catheteriza tion; however, came in last night with classic unstable angina symptoms. Procedure In Detail: Brought to the helper animal laboratory today on 07/17/2022 as an inpatient. He was prepped an d draped in routine sterile fashion. Underwent a left heart catheterization, selective coronary narciso riogram, common femoral artery angiogram, and primary stent of the mid LAD. He was given Versed and fentanyl for sedation. A 6-Citizen Of [place] sheath introduced in the right common femoral artery successfully. Angio-Seal was used to close the case. Elizabeth catheters were used to cannulate the left main and right main. His left main was normal. Circumflex was normal. His RCA was normal. He had a 70% to 80% long LAD stenosis after the first diagonal. We decided to intervene. He was given Angiomax. He was given 60 mg of Effient. He was given aspirin. An XBLAD 3.5 with side-hole guide 6-Citizen Of [place] was u sed to cannulate the left main. A [place] wire was used to cross the lesion. A 2.5 x 20 Synergy sten t was placed at 14 atmospheres with 0% residual. There was some spasm after the stent, which was res olved after intracoronary nitroglycerin. Anesthesia: Total conscious sedation 60 minutes. Complications: No complications. Blood Loss: 5 cc. Postoperative Diagnosis: Coronary artery disease, status post successful primary stent of the mid LA D. POLLY/ALEJANDRO Voice ID: [id number] Report ID: [id number]
--- NOTE | 2022-07-17 13:33 | RAD REPORT ---
EXAM DESCRIPTION: CT - Angio Aorta For Dissection - 07/17/2022 6:53 am CLINICAL HISTORY: Chest pain, radiates to back, facial numbness. COMPARISON: Chest radiograph from July 16, 2022. TECHNIQUE: CTA of the chest, abdomen, and pelvis was performed following intravenous administration of iodinated contrast. Axial soft tissue and lung window, and coronal and sagittal soft tissue window reconstructions were created and sent to PACS. 3D postprocessing was performed on an independent workstation, with images sent to PACS for subsequen t review. This exam was performed according to our departmental dose-optimization program, which includes autom ated exposure control, adjustment of the mA and/or kV according to patient size and/or use of iterati ve reconstruction technique. FINDINGS: Vascular: The pulmonary arteries are well-opacified to the segmental level. No CT evidence of acute pulmonary thromboembolism. No evidence of aortic aneurysm or dissection. The celiac axis, S MA, and ANALIA and their major branches are patent. Patent bilateral renal arteries. Lungs and pleura: No pulmonary consolidation. No pleural effusion. No pneumothorax. Moderate elevatio n of the left hemidiaphragm. Mild atelectasis in the lingula and basilar left lower lobe. Mediastinum and neck: No mediastinal lymphadenopathy by CT size criteria. Unremarkable appearance of the thyroid gland. Cardiac: Mild cardiomegaly. No pericardial effusion. Hepatobiliary: Hepatomegaly, measuring 19.7 cm in length. Lateral right hepatic lobe hypodense lesion with peripheral nodular enhancement measures approximately 2.2 cm, likely a benign hemangioma. Suspe cted associated RIOS. The portal veins are patent. The gallbladder is unremarkable. No biliary ductal dilatation. Pancreas: Unremarkable. Spleen: Unremarkable. Gastrointestinal: No evidence of bowel obstruction or perienteric inflammation. The appendix is wsiam l. Adrenals: No abnormality identified in either adrenal gland. Renal: No concerning parenchymal abnormality in either kidney. No hydronephrosis or urolithiasis. Bladder/Reproductive: Unremarkable appearance of the urinary bladder by CT technique. Mild prostatome vazquez. Vascular/Lymphatics: No lymphadenopathy identified by CT size criteria. Abdominal aorta is normal in caliber. Musculoskeletal: No concerning osseous lesion identified. Left iliopsoas muscle contains two small fl uid collections, possibly para labral cysts, synovial diverticula, or ganglion cysts. Fluid / peritoneum: No significant free fluid. No free intraperitoneal air identified. IMPRESSION: 1. No aortic aneurysm or dissection. 2. No acute abnormality identified in the chest, abdomen, or pelvis by CT. Electronically signed by: Violet León MD 07/17/2022 12:57 AM CDT Due to temporary technical issues with the PACS/Fluency reporting system, reports are being signed by the in house radiologists without review as a courtesy to insure prompt reporting. The interpreting radiologist is fully responsible for the content of the report.
--- NOTE | 2022-07-17 14:28 | EKG ---
Test Date: 2022-07-16 Test Time: 22:39:59 Predatory Game Hunter: HUMAIRA MEASUREMENT RESULTS: Intervals: Rate: 53 CA: QRSD: 82 QT: 408 QTc: 382 [place]: P: CA: QRS: 31 T: 57 INTERPRETIVE STATEMENTS: Junctional rhythm Possible Inferior infarct, age undetermined Abnormal ECG Compared to ECG 07/23/2020 12:30:24 Junctional rhythm now present Myocardial infarct finding now present Sinus rhythm no longer present Electronically Signed On 07-17-22 14:27:47 CDT by Silver Navarro
--- NOTE | 2022-07-17 14:28 | EKG ---
Test Date: 2022-07-16 Test Time: 22:43:06 Video Control Engineer: HUMAIRA MEASUREMENT RESULTS: Intervals: Rate: 74 ME: QRSD: 76 QT: 374 QTc: 415 [place]: P: ME: QRS: 43 T: 39 INTERPRETIVE STATEMENTS: Accelerated Junctional rhythm Abnormal ECG Compared to ECG 07/16/2022 22:39:59 Accelerated junctional rhythm now present Junctional rhythm no longer present Myocardial infarct finding no longer present Electronically Signed On 07-17-22 14:27:39 CDT by Silver Navarro
[2022-07-17 16:31] VITALS: BP 116/76; TEMP 97.1; O2SAT 94
[2022-07-18] MEDS ORDERED: CLOPIDOGREL 75 MG TABLET PO SCH (09:00)
--- NOTE | 2022-07-18 09:33 | SS ---
Date of Admission: 07/17/2022 Date of Discharge: 07/17/2022 Chief Complaint: Chest pain. History Of Present Illness: This is a 67-year-old male patient, who came into emergency room with complaints of mid central chest pain describing as some discomfort with pressure type of feeling. Pain lasted just for few minutes and did have some associated shortness of breath type of feeling. No sweating. No nausea. With this, he came into emergency room and after he was evaluated, he was admitted to the hospital. The patient has seen Dr. Thurston, automotive parts manager for this chest pain on outpatient basis and this morning actually he was scheduled to have outpatient cardiac cath, but meanwhile he ends up in the hospital during nighttime and he was admitted to the hospital. Cardiology consultation has been requested from Dr. Thurston and when I saw him in the emergency room this morning, he was asymptomatic. The patient also has other complaint where he describes as some tingling and numbness type of sensation that involves right side of his face, right side of his neck, and right upper anterior chest and that has been going on an intermittent basis for last 2 months. Allergies: NO KNOWN ALLERGIES. Medications: List reviewed. Review of Systems: Cardiovascular: As mentioned above. 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 All other systems reviewed and negative. Past Medical History: Significant for hypertension, type 2 diabetes mellitus, hyperlipidemia, BPH, GERD, testicular hypofunction, and obstructive sleep apnea. Past Surgical History: Lower back and cervical spine surgery, shoulder surgery, elbow surgery, knee surgery and foot surgery. Family History: Father had hypertension, hyperlipidemia, diabetes, and he several years ago. Mother recently less than a year ago and she had hypertension, end-stage renal disease, on hemodialysis. Sister has hypertension, diabetes, chronic kidney disease. Social History: Negative for smoking and positive for alcohol use. Physical Examination: Vital Signs: Temperature 98.5, pulse 53, respiratory rate 19, blood pressure 110/83, oxygen saturation 96%. Height 5 feet 9 inches, weight 214 pounds. General: Awake, alert, oriented, not in distress. HEENT: Head atraumatic, normocephalic. Conjunctivae nonerythematous. Sclerae white. Mouth, no thrush or edema noted. Ears/Nose, no mass, lesion, discharge noted. Neck: Supple. No JVD, lymph nodes, bruit, thyromegaly noted. Lungs: Bilateral good equal air entry. Clear to auscultation. No rhonchi. No rales. Heart: Normal heart sounds, no murmur or gallop. Abdomen: Soft, bowel sounds normal. No guarding, rigidity, tenderness, mass, hepatosplenomegaly, distention, or bruit noted. Extremities: No leg edema. No calf tenderness. Skin: No rash, ulcer, cellulitis. Lymphatics: No lymph node enlargement in neck, supraclavicular, infraclavicular region. Neuro: No focal neurological deficit. Chest: Unremarkable. External Genitalia: Deferred. Rectal: Deferred. Laboratory Data: White count 4.3, hemoglobin 15.9, platelets 220. Sodium 139, potassium 4, chloride 106, bicarb 32, BUN 25, creatinine 0.79, glucose 96. Troponin 7.8 on the first set, second set 7.4. EKG; no acute changes, normal sinus rhythm. MRI of the cervical spine done today shows cervical spondylosis changes. Hospital Course: After the patient was evaluated, admitted to the hospital. Cardiology consultation was requested from Dr. Thurston and also requested MRI of the cervical spine, which was done and after MRI, Dr. Thurston took her into cardiac laborer petroleum refinery. The patient was reported to have claustrophobia, so requested some medications, so lorazepam 0.5 mg IV x1 dose was given prior to MRI and he tolerated that procedure well. Subsequently, cardiac cath showed about 80% stenosis of LAD and Dr. Thurston successfully placed stent in this area. After the procedure, Dr. Thurston gave a prescription of clopidogrel 75 mg daily to be taken to the patient's and he did call me and discuss details with me as well. After the patient's rest period was over this evening, he was discharged to go home in stable condition with instruction to follow up at my office next week on Thursday and follow up with Dr. Thurston in 2 weeks. Discharge Diagnoses: 1. Unstable angina. 2. Coronary artery disease. 3. Hypertension. 4. Hyperlipidemia. 5. Type 2 diabetes mellitus. 6. Obstructive sleep apnea. 7. Cervical spondylosis. Discharge Medications And Instructions: 1. Continue all prior home medication except discontinue metformin. 2. Change atorvastatin dose to 20 mg. The patient to take 2 tablets daily until he runs out and then change it to 40 mg tablet, take 1 tablet daily at bedtime. 3. Take clopidogrel 75 mg daily as prescribed by Dr. Thurston. REID/ALEJANDRO Voice ID: [id number] Report ID: [id number] MTDD
--- NOTE | 2022-07-20 07:37 | CON ---
Date of Consultation: 07/17/2022 Reason For Consultation: Unstable angina. History Of Present Illness: Mr. Phillips is a 67-year-old Latin-Japanese male with history of hyperten susanne, diabetes, and dyslipidemia and unstable angina. I plan to do a heart catheterization on him as an outpatient he came into the hospital with substernal chest pain radiating to both shou lders with diaphoresis. Pain radiated to the back as well. Denies any nausea, vomiting, PND, orthop marifer, pedal edema, palpitations, or syncope. EKG showed nonspecific changes. Troponin was negative. Past Medical History: As stated above. Allergies: NONE. Review of Systems: Negative. Social History: Negative. Family History: Positive for diabetes and coronary artery disease. Medications: At home include aspirin, metformin, and Lipitor. Physical Examination: Vital Signs: Stable. He is afebrile. HEENT: Negative. Neck: Supple with no bruit. Chest: Clear. Cardiac: Revealed regular rhythm and rate. No murmurs, gallops, or rubs. Abdomen: Benign. EXTREMITIES: Revealed no clubbing, cyanosis, or edema. Diagnostic Data: Unremarkable. Impression And Plan: The patient with multiple cardiac risk factors including diabetes, hypertension , dyslipidemia, classic unstable angina symptoms. I would advise a left heart catheterization to def ine his coronary anatomy. Patient understands the risk and the benefits of the procedure and he agre es to proceed. Continue present regimen for now. I will keep Dr. Samuel up-to-date after the catheter ization. POLLY/ALEJANDRO Voice ID: [id number] Report ID: [id number]
== END 2022-07-17 17:20 | disposition home or self-care (01) ==
LOC: ER 22:05 → ERHOLD 07-17 02:46 → 2ND 07-17 10:57
PROVIDERS: ADMIT Internal Medicine; ATTEND Internal Medicine
DX: I25.110 Atherosclerotic heart disease of native coronary artery with unstable angina pectoris (principal); I10 Essential (primary) hypertension; E78.2 Mixed hyperlipidemia; E11.9 Type 2 diabetes mellitus without complications; G47.33 Obstructive sleep apnea (adult) (pediatric); M47.812 Spondylosis without myelopathy or radiculopathy, cervical region; K21.9 Gastro-esophageal reflux disease without esophagitis; N40.0 Benign prostatic hyperplasia without lower urinary tract symptoms; E29.1 Testicular hypofunction; F40.240 Claustrophobia; Z79.84 Long term (current) use of oral hypoglycemic drugs; Z79.82 Long term (current) use of aspirin; Z79.899 Other long term (current) drug therapy; Z20.822 Contact with and (suspected) exposure to COVID-19; Z82.49 Family history of ischemic heart disease and other diseases of the circulatory system; Z83.3 Family history of diabetes mellitus; Z84.1 Family history of disorders of kidney and ureter
CPT/HCPCS: 93005 ×2; 85025; 80048; 36415; 85610; 82565; 82947 ×2; 85379; 85347 ×3; 84484 ×2; 83880; 71275; 74175; 71045; 93454; 72141; 99285; 87811; Q9967 ×2; C1893; C1760; G0269; C1725; C1877; C9600; J2250; J3360; J3010; J0583; G0378 ×4; J7040; J1644; J2310

== ENCOUNTER 2023-09-30 16:33 | Emergency (ER) | payer OTHER ==
--- OUTSIDE RECORDS SUMMARY | 2023-09-30 16:38 | XMS REPORT | Continuity of Care Document ---
:1955 Author Organization [facility] t Address [address] [facility] [place] [address] Care Team Providers Name Role Phone Mikey Samuel Attending Clinician Unavailable Telly Gann Attending Clinician Payers Payer Name Policy Type Policy Number Effective Date Expiration Date S marcialce AETNA MEDICARE 53 [id number] 2021 Common S pirit 00:00:00 [facility] AENA MEDICARE 53 [id number] 2017 Common Spi rit 00:00:00 [facility] AETNA MEDICARE C1 [id number] Common Spi rit - [facility] AETNA MEDICARE C1 [id number] Common Spi rit [facility] AENA MEDICARE C1 [id number] Common Spi rit [facility] AETNA MEDICARE C1 [id number] Common Spi rit [facility] AETNA MEDICARE C1 [id number] Common Spi rit [facility] AETNA MEDICARE C1 [id number] Common Spi rit [facility] Problems Condition Condition Condition Status Onset Resolution Last Treating Co mments Source Name Details Category Date Date Treatment Clinician Date [id number] Elevated Problem Comm on liver [facility] enzymes [facility] [id number] Erythrocyt Problem Co mmon osis Spirit [facility] [id number] Posthitis Problem Comm on Spirit [facility] [id number] Primary Problem Comm on osteoarthr Spirit itis of - [facility] left knee [facility] [id number] BPH loc w Problem Com mon urin Spirit obs/LUTS - [facility] [id number] Primary Problem Commo n testicular Spirit failure - [facility] [id number] Loose body Problem C ommon in knee, Spirit left knee - [facility] 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 Pain in Pain in Problem Resolve 2021-08-10 M emoria lower limb lower limb d 21:43:49 l (finding) (finding) Bjorn franklin Resolved Problem 08/10/2021 [facility] Cervical Cervical Problem Active 2021-08-10 Memoria radiculopa radiculopa 21:43:49 l thy thy Abdulkadir (disorder) (disorder) Active Problem 08/10/2021 [facility] Chronic Chronic Problem Active 2021-08-10 Me moria neck pain neck pain 21:43:49 l (finding) (finding) Bjorn franklin Active Problem 08/10/2021 [facility] Lumbar Lumbar Problem Active 2021-08-10 Mem oria radiculopa radiculopa 21:43:49 l thy thy [place] (disorder) (disorder) Active Problem 08/10/2021 [facility] Paresthesi Paresthes Problem Active 2021-08-10 Memoria a ia 21:43:49 l (finding) (finding) Herm rigoberto Active Problem 08/10/2021 [facility] Shoulder Shoulder Problem Active 2021-08-10 Memoria pain pain 21:43:49 l (finding) (finding) Bjorn franklin Active Problem 08/10/2021 [facility] 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 21:43:49 l in in [place] cervical cervical region region (disorder) (disorder) Active Problem 08/10/2021 [facility] 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 2 [place] (disorder) (disorder) Active Problem 08/10/2021 [facility] Allergies, Adverse Reactions, Alerts Allergy Allergy Status Severity Reaction(s) Onset Inactive Treating Comm ents Source Name Type Date Date Clinician No Known No Known Active Memori a Medicati Medicati l on on Abdulkadir abdullahi s Social History Social Habit Start Date Stop Date Quantity Comments Source History of Tobacco Common Spirit - Use [facility] Sex Assigned At Common Sp tigist - [facility] Social History 2021-04-09 2021-04-09 Isaiah Jose Alejandro jensen 19:48:23 19:48:23 Smoking Status Start Date Stop Date Source Never Smoker [facility] Medications Ordered Filled Start Stop Current Ordering Indication Dosage Frequency Signature Comments Components Source Medication Medication Date Date Medication? Clinician (SIG) Name Name Tamsulosin Tamsulosin No 1{capsu Tamsulosin HCl 0.4 MG HCl 0.4 MG 5-04 le} HCl 0.4 MG 00:00: 00 Oxybutynin Oxybutynin No 1{table QD Oxybutynin Chloride ER Chloride ER 5-04 t} Chloride 5 MG 5 MG 00:00: ER 5 MG 00 Clotrimazol Clotrimazol No 1{appli BID Clotrimazo e-Betametha e-Betametha 5-04 cation} le-Betamet sone 1-0.05 sone 1-0.05 00:00: hasone % % 00 1-0.05 % Tamsulosin Tamsulosin No 1{capsu Tamsulosin HCl 0.4 MG HCl 0.4 MG 5-04 le} HCl 0.4 MG 00:00: 00 Oxybutynin Oxybutynin No 1{table QD Oxybutynin Chloride ER Chloride ER 5-04 t} Chloride 5 MG 5 MG 00:00: ER 5 MG 00 Clotrimazol Clotrimazol No 1{appli BID Clotrimazo e-Betametha e-Betametha 5-04 cation} le-Betamet sone 1-0.05 sone 1-0.05 00:00: hasone % % 00 1-0.05 % Testosteron Testosteron No Testostero e Cypionate e Cypionate 8-17 ne 200 MG/ML 200 MG/ML 00:00: Cypionate 00 200 MG/ML Testosteron Testosteron 0 No Testostero e Cypionate e Cypionate 8-17 ne 200 MG/ML 200 MG/ML 00:00: Cypionate 00 200 MG/ML Jatenzo 237 Jatenzo 237 2021-0 No 1{capsu BID Jatenzo MG MG 7-20 le} 237 MG 00:00: 00 Jatenzo 237 Jatenzo 237 2021-0 No 1{capsu BID Jatenzo MG MG 7-20 le} 237 MG 00:00: 00 Testosteron Testosteron 2020-11 No Testostero e Cypionate e Cypionate 2-15 ne 200 MG/ML 200 MG/ML 00:00: Cypionate 00 200 MG/ML Testosteron Testosteron 2020-11 No Testostero e Cypionate e Cypionate 2-15 ne 200 MG/ML 200 MG/ML 00:00: Cypionate 00 200 MG/ML Testosteron Testosteron 2020-11 No Testostero e Cypionate e Cypionate 2-15 ne 200 MG/ML 200 MG/ML 00:00: Cypionate 00 200 MG/ML Testosteron Testosteron 2020-11 No e Cypionate e Cypionate 2-15 200 MG/ML 200 MG/ML 00:00: 00 Testosteron Testosteron 2020-11 No Testostero e Cypionate e Cypionate 2-15 ne 200 MG/ML 200 MG/ML 00:00: Cypionate 00 200 MG/ML Testosteron Testosteron 2020-11 No e Cypionate e Cypionate 2-15 200 MG/ML 200 MG/ML 00:00: 00 Testosteron Testosteron 2020-11 No Testostero e Cypionate e Cypionate 2-15 ne 200 MG/ML 200 MG/ML 00:00: Cypionate 00 200 MG/ML Testosteron Testosteron 2020-11 No Testostero e Cypionate e Cypionate 2-15 ne 200 MG/ML 200 MG/ML 00:00: Cypionate 00 200 MG/ML Testosteron Testosteron 2020-11 No Testostero e Cypionate e Cypionate 2-09 ne 100 MG/ML 100 MG/ML 00:00: Cypionate 00 100 MG/ML Testosteron Testosteron 2020-11 No Testostero e Cypionate e Cypionate 2-09 ne 100 MG/ML 100 MG/ML 00:00: Cypionate 00 100 MG/ML Testosteron Testoster 2020-11 No Testostero e Cypionate e Cypionate 2-09 ne 100 MG/ML 100 MG/ML 00:00: Cypionate 00 100 MG/ML Testoster Testoster 2020-11 No Testostero e Cypionate e Cypionate 2-09 ne 100 MG/ML 100 MG/ML 00:00: Cypionate 00 100 MG/ML Testoster Testoster 2020-11 No e Cypionate e Cypionate 2-09 100 MG/ML 100 MG/ML 00:00: 00 Testoster Testoster 2020-11 No Testostero e Cypionate e Cypionate 2-09 ne 100 MG/ML 100 MG/ML 00:00: Cypionate 00 100 MG/ML Testoster Testoster 2020-11 No e Cypionate e Cypionate 2-09 100 MG/ML 100 MG/ML 00:00: 00 Testoster Testoster 2020-11 No Testostero e Cypionate e Cypionate 2-09 ne 100 MG/ML 100 MG/ML 00:00: Cypionate 00 100 MG/ML Testoster Testoster 2020-11 No Testostero e Cypionate e Cypionate 2-09 ne 100 MG/ML 100 MG/ML 00:00: Cypionate 00 100 MG/ML Testoster Testoster 2020-11 No Testostero e Cypionate e Cypionate 2-09 ne 100 MG/ML 100 MG/ML 00:00: Cypionate 00 100 MG/ML Testoster Testoster 2020-11 No Testostero e Cypionate e Cypionate 2-09 ne 100 MG/ML 100 MG/ML 00:00: Cypionate 00 100 MG/ML Testoster Testoster 0 No 1{ml} Testostero e Cypionate e Cypionate 8-11 ne 100 MG/ML 100 MG/ML 00:00: Cypionate 00 100 MG/ML Testosteron Testoster 0 No 1{ml} Testostero e Cypionate e Cypionate 8-11 ne 100 MG/ML 100 MG/ML 00:00: Cypionate 00 100 MG/ML Testoster Testosteron 0 No 1{ml} Testostero e Cypionate e Cypionate 8-11 ne 100 MG/ML 100 MG/ML 00:00: Cypionate 00 100 MG/ML Testosteron Testosteron 0 No 1{ml} Testostero e Cypionate e Cypionate 8-11 ne 100 MG/ML 100 MG/ML 00:00: Cypionate 00 100 MG/ML Testosteron Testosteron 0 No 1{ml} Testostero e Cypionate e Cypionate 8-11 ne 100 MG/ML 100 MG/ML 00:00: Cypionate 00 100 MG/ML Testosteron Testosteron 0 No 1{ml} Testostero e Cypionate e Cypionate 8-11 ne 100 MG/ML 100 MG/ML 00:00: Cypionate 00 100 MG/ML Testosteron Testosteron 0 No 1{ml} Testostero e Cypionate e Cypionate 8-11 ne 100 MG/ML 100 MG/ML 00:00: Cypionate 00 100 MG/ML VESIcare 5 VESIcare 5 2020-0 2021- No 1{table QD VESIcare 5 MG MG 07-10 t} MG 00:00: 00:00 00 :00 VESIcare 5 VESIcare 5 2020-0 1- No 1{table QD VESIcare 5 MG MG 07-10 t} MG 00:00: 00:00 00 :00 Orthovisc Orthovisc 1-0 No 15mg Com 07-02 Spirit 00:00: - [facility] Orthovisc Orthovisc 1-0 No 15mg Com 07-02 Spirit 00:00: - [facility] Orthovisc Orthovisc 1-0 No 15mg Com 07-02 Spirit 00:00: - [facility] Orthovisc Orthovisc 1-0 No 15mg Com 07-02 Spirit 00:00: - [facility] Orthovisc Orthovisc 1-0 No 15mg Com 07-02 Spirit 00:00: - [facility] Orthovisc Orthovisc 2020-0 No 15mg Com 07-02 Spirit 00:00: - [facility] Orthovisc Orthovisc 2020-0 No 15mg Com 06-25 Spirit 00:00: - [facility] Orthovisc Orthovisc 2020-0 No 15mg Com 06-25 Spirit 00:00: - [facility] Orthovisc Orthovisc 2020-0 No 15mg Com 06-25 Spirit 00:00: - [facility] Orthovisc Orthovisc 2020-0 No 15mg Com 06-25 Spirit 00:00: - [facility] Orthovisc Orthovisc 2020-0 No 15mg Com 06-25 Spirit 00:00: - [facility] Orthovisc Orthovisc 2020- No 15mg Com 06-25 Spirit 00:00: - [facility] Orthovisc Orthovisc 2020-0 No 30mg Com 06-17 Spirit 00:00: - [facility] Orthovisc Orthovisc 2020-0 No 30mg Com 06-17 Spirit 00:00: - [facility] Orthovisc Orthovisc 2020-0 No 30mg Com 06-17 Spirit 00:00: - [facility] Orthovisc Orthovisc 2020-0 No 30mg Com 06-17 Spirit 00:00: - [facility] Orthovisc Orthovisc 2020-0 No 30mg Com 06-17 Spirit 00:00: - [facility] Orthovisc Orthovisc 2020-0 No 30mg Com 06-17 Spirit 00:00: - [facility] Metformin 2020- Yes 1,000 mg = Me moria hydrochlori 5-11 1 tab, PO, l de 1000 MG 20:25: BID-Meals, H ermann Oral Tablet 00 # 60 tab, 0 Refill(s) tamsulosin Yes 0.4 mg = 1 M emoria 0.4 mg oral 5-11 cap, PO, l capsule 20:11: Daily, # Avinash n 00 30 cap, 0 Refill(s) multivitami 2021-0 Yes Daily, 0 Me moria n 5-11 Refill(s) l 20:10: [place] 00 B-12 Yes 0 Memoria 5-11 Refill(s) l 20:10: Abdulkadir 00 Aspirin Yes 0 Memoria 5-11 Refill(s) l 20:10: [place] 00 atorvastati Yes 20 mg = 1 M emoria n 20 mg 5-11 tab, PO, l oral tablet 20:09: Bedtime, # Abdulkadir 00 30 tab, 0 Refill(s) Metformin No 0 Memoria hydrochlori 5-11 Refill(s) l de 1000 MG 20:08: Abdulkadir rosiglitazo ne 2 MG Oral Tablet irbesartan Yes 75 mg = 1 Me moria 75 mg oral 5-11 tab, PO, l tablet 20:08: Daily, # Abdulkadir 00 30 tab, 0 Refill(s) Flomax 0.4 Flomax 0.4 2020- No 1{capsu QD Flomax 0.4 MG MG 5-10-27 le} MG 00:00: 00:00 00 :00 Flomax 0.4 Flomax 0.4 0 2020- No 1{capsu QD Flomax 0.4 MG MG 5-02 07-28 le} MG 00:00: 00:00 00 :00 Flomax 0.4 Flomax 0.4 2020-0 2020- No 1{capsu QD Flomax 0.4 MG MG 5-10-27 le} MG 00:00: 00:00 00 :00 [place] 2018-0 2019- No Fabio 1 tablet Com mon 02-24 04-07 Garcia as needed Spirit 00:00: 00:00 - [facility] 00 :00 [facility] MetFORMIN MetFORMIN 2018- Yes Fabio 1 tablet Common HCl ER HCl ER 2-25 Garcia with Spirit 00:00: evening - [facility]I 00 meal [facility] Aspir-81 Aspir-81 2018-0 Yes Fabio 1 tablet Common 2-25 Garcia Spirit 00:00: - [facility]I 00 [facility] Losartan Losartan 2018-0 Yes Fabio 1 tablet Common Potassium-H Potassium-H 2-25 Garcia S pirit CTZ CTZ 00:00: - CHI 00 [facility] Losartan Losartan No 1{table QD Losartan Potassium-H Potassium-H 2-25 t} Potassium- CTZ 50-12.5 CTZ 50-12.5 00:00: HCTZ MG MG 00 50-12.5 MG Aspir-81 81 Aspir-81 81 No 1{table QD Aspir-81 MG MG 2-25 t} 81 MG 00:00: 00 metFORMIN metFORMIN No 1{table QD metFORMIN HCl ER 750 HCl ER 750 2-25 t_with_ HCl ER 750 MG MG 00:00: evening MG 00 _meal} Losartan Losartan No 1{table QD Losartan Potassium-H Potassium-H 2-25 t} Potassium- CTZ 50-12.5 CTZ 50-12.5 00:00: HCTZ MG MG 00 50-12.5 MG metFORMIN metFORMIN No 1{table QD metFORMIN HCl ER 750 HCl ER 750 2-25 t_with_ HCl ER 750 MG MG 00:00: evening MG 00 _meal} - 81 Aspir- 81 No 1{table QD Aspir-81 MG MG 2-25 t} 81 MG 00:00: 00 Aspir-81 81 Aspir- 81 No 1{table QD Aspir-81 MG MG 2-25 t} 81 MG 00:00: 00 metFORMIN metFORMIN No 1{table QD metFORMIN HCl ER 750 HCl ER 750 2-25 t_with_ HCl ER 750 MG MG 00:00: evening MG 00 _meal} Losartan Losartan No 1{table QD Losartan Potassium-H Potassium-H 2-25 t} Potassium- CTZ 50-12.5 CTZ 50-12.5 00:00: HCTZ MG MG 00 50-12.5 MG Aspir- 81 Aspir- 81 No 1{table QD Aspir-81 MG MG 2-25 t} 81 MG 00:00: 00 metFORMIN metFORMIN No 1{table QD metFORMIN HCl ER 750 HCl ER 750 2-25 t_with_ HCl ER 750 MG MG 00:00: evening MG 00 _meal} Losartan Losartan No 1{table QD Losartan Potassium-H Potassium-H 2-25 t} Potassium- CTZ 50-12.5 CTZ 50-12.5 00:00: HCTZ MG MG 00 50-12.5 MG Aspir- 81 No 1{table QD Aspir-81 MG MG 2-25 t} 81 MG 00:00: 00 metFORMIN metFORMIN No 1{table QD metFORMIN HCl ER 750 HCl ER 750 2-25 t_with_ HCl ER 750 MG MG 00:00: evening MG 00 _meal} Losartan Losartan No 1{table QD Losartan Potassium-H Potassium-H 2-25 t} Potassium- CTZ 50-12.5 CTZ 50-12.5 00:00: HCTZ MG MG 00 50-12.5 MG - 81 No 1{table QD Aspir-81 MG MG 2-25 t} 81 MG 00:00: 00 metFORMIN metFORMIN No 1{table QD metFORMIN HCl ER 750 HCl ER 750 2-25 t_with_ HCl ER 750 MG MG 00:00: evening MG 00 _meal} Losartan Losartan No 1{table QD Losartan Potassium-H Potassium-H 2-25 t} Potassium- CTZ 50-12.5 CTZ 50-12.5 00:00: HCTZ MG MG 00 50-12.5 MG metFORMIN metFORMIN No 1{table QD metFORMIN HCl ER 750 HCl ER 750 2-25 t_with_ HCl ER 750 MG MG 00:00: evening MG 00 _meal} No 1{table QD Aspir-81 MG MG 2-25 t} 81 MG 00:00: 00 Losartan Losartan No 1{table QD Losartan Potassium-H Potassium-H 2-25 t} Potassium- CTZ 50-12.5 CTZ 50-12.5 00:00: HCTZ MG MG 00 50-12.5 MG Losartan Losartan No 1{table QD Losartan Potassium-H Potassium-H 2-25 t} Potassium- CTZ 50-12.5 CTZ 50-12.5 00:00: HCTZ MG MG 00 50-12.5 MG metFORMIN metFORMIN No 1{table QD metFORMIN HCl ER 750 HCl ER 750 2-25 t_with_ HCl ER 750 MG MG 00:00: evening MG 00 _meal} No 1{table QD Aspir-81 MG MG 2-25 t} 81 MG 00:00: 00 Aspir-81 81 Aspir-81 81 No 1{table QD Aspir-81 MG MG 2-25 t} 81 MG 00:00: 00 Losartan Losartan No 1{table QD Losartan Potassium-H Potassium-H 2-25 t} Potassium- CTZ 50-12.5 CTZ 50-12.5 00:00: HCTZ MG MG 00 50-12.5 MG metFORMIN metFORMIN No 1{table QD metFORMIN HCl ER 750 HCl ER 750 2-25 t_with_ HCl ER 750 MG MG 00:00: evening MG 00 _meal} 81 Aspir-81 81 No 1{table QD Aspir-81 MG MG 2-25 t} 81 MG 00:00: 00 Losartan Losartan No 1{table QD Losartan Potassium-H Potassium-H 2-25 t} Potassium- CTZ 50-12.5 CTZ 50-12.5 00:00: HCTZ MG MG 00 50-12.5 MG metFORMIN metFORMIN No 1{table QD metFORMIN HCl ER 750 HCl ER 750 2-25 t_with_ HCl ER 750 MG MG 00:00: evening MG 00 _meal} 81 2019 No 1{table QD MG MG 2-25 t} 00:00: 00 Losartan Losartan No 1{table QD Potassium-H Potassium-H 2-25 t} CTZ 50-12.5 CTZ 50-12.5 00:00: MG MG 00 metFORMIN metFORMIN 2018- No 1{table QD HCl ER 750 HCl ER 750 2-25 t_with_ MG MG 00:00: evening 00 _meal} 81 Aspir81 81 2019 No 1{table QD Aspir-81 MG MG 2-25 t} 81 MG 00:00: 00 Losartan Losartan 2019 No 1{table QD Losartan Potassium-H Potassium-H 2-25 t} Potassium- CTZ 50-12.5 CTZ 50-12.5 00:00: HCTZ MG MG 00 50-12.5 MG metFORMIN metFORMIN No 1{table QD metFORMIN HCl ER 750 HCl ER 750 2-25 t_with_ HCl ER 750 MG MG 00:00: evening MG 00 _meal} 81 Aspir-81 81 No 1{table QD MG MG 2-25 t} 00:00: 00 Losartan Losartan No 1{table QD Potassium-H Potassium-H 2-25 t} CTZ 50-12.5 CTZ 50-12.5 00:00: MG MG 00 metFORMIN metFORMIN No 1{table QD HCl ER 750 HCl ER 750 2-25 t_with_ MG MG 00:00: evening 00 _meal} Aspir-81 81 Aspir-81 81 No 1{table QD Aspir-81 MG MG 2-25 t} 81 MG 00:00: 00 Losartan Losartan No 1{table QD Losartan Potassium-H Potassium-H 2-25 t} Potassium- CTZ 50-12.5 CTZ 50-12.5 00:00: HCTZ MG MG 00 50-12.5 MG metFORMIN metFORMIN No 1{table QD metFORMIN HCl ER 750 HCl ER 750 2-25 t_with_ HCl ER 750 MG MG 00:00: evening MG 00 _meal} - 81 81 No 1{table QD Aspir-81 MG MG 2-25 t} 81 MG 00:00: 00 Losartan Losartan No 1{table QD Losartan Potassium-H Potassium-H 2-25 t} Potassium- CTZ 50-12.5 CTZ 50-12.5 00:00: HCTZ MG MG 00 50-12.5 MG metFORMIN metFORMIN No 1{table QD metFORMIN HCl ER 750 HCl ER 750 2-25 t_with_ HCl ER 750 MG MG 00:00: evening MG 00 _meal} Losartan Losartan No 1{table QD Losartan Potassium-H Potassium-H 2-25 t} Potassium- CTZ 50-12.5 CTZ 50-12.5 00:00: HCTZ MG MG 00 50-12.5 MG Aspir- 81 Aspir-81 81 No 1{table QD Aspir-81 MG MG 2-25 t} 81 MG 00:00: 00 metFORMIN metFORMIN No 1{table QD metFORMIN HCl ER 750 HCl ER 750 2-25 t_with_ HCl ER 750 MG MG 00:00: evening MG 00 _meal} Losartan Losartan No 1{table QD Losartan Potassium-H Potassium-H 2-25 t} Potassium- CTZ 50-12.5 CTZ 50-12.5 00:00: HCTZ MG MG 00 50-12.5 MG Aspir-81 81 Aspir-81 81 No 1{table QD Aspir-81 MG MG 2-25 t} 81 MG 00:00: 00 metFORMIN metFORMIN No 1{table QD metFORMIN HCl ER 750 HCl ER 750 2-25 t_with_ HCl ER 750 MG MG 00:00: evening MG 00 _meal} Aspir-81 81 Aspir-81 81 No 1{table QD Aspir-81 MG MG 2-25 t} 81 MG 00:00: 00 Aspir-81 81 Aspir-81 81 No 1{table QD Aspir-81 MG MG 2-25 t} 81 MG 00:00: 00 Aspir-81 81 Aspir-81 81 No 1{table QD Aspir-81 MG MG 2-25 t} 81 MG 00:00: 00 Losartan Losartan No 1{table QD Losartan Potassium-H Potassium-H 2-25 t} Potassium- CTZ 50-12.5 CTZ 50-12.5 00:00: HCTZ MG MG 00 50-12.5 MG metFORMIN metFORMIN No 1{table QD metFORMIN HCl ER 750 HCl ER 750 2-25 t_with_ HCl ER 750 MG MG 00:00: evening MG 00 _meal} Testosteron Testosteron Yes Fabio not Common e Cypionate e Cypionate Garcia defined [facility] GlipiZIDE GlipiZIDE Yes Fabio not Co mmon ER ER Garcia defined [facility] Victoza Victoza Yes Fabio not Common Garcia defined [facility] traMADol traMADol No traMADol HCl HCl HCl glipiZIDE glipiZIDE No glipiZIDE ER 5 MG ER 5 MG ER 5 MG Testosteron Testosteron No Testostero e Cypionate e Cypionate ne 200 MG/ML 200 MG/ML Cypionate 200 MG/ML Atorvastati Atorvastati No Atorvastat n Calcium n Calcium in Calcium Lipitor 20 Lipitor 20 No 1{table QD Lipitor 20 MG MG t} MG Cephalexin Cephalexin No Cephalexin Cyclobenzap Cyclobenzap No Cyclobenza rine HCl rine HCl karthik HCl Victoza Victoza No Victoza Mobic 7.5 Mobic 7.5 No 1{table QD Mobic 7.5 MG MG t} MG predniSONE predniSONE No predniSONE [place] No 1{table QID [place] 7.5-325 MG 7.5-325 MG t_as_ne 7.5-325 MG eded} Diclofenac Diclofenac No Diclofenac Sodium Sodium Sodium Cephalexin Cephalexin No Cephalexin traMADol traMADol No traMADol HCl HCl HCl glipiZIDE glipiZIDE No glipiZIDE ER 5 MG ER 5 MG ER 5 MG Testosteron Testosteron No Testostero e Cypionate e Cypionate ne 200 MG/ML 200 MG/ML Cypionate 200 MG/ML Atorvastati Atorvastati No Atorvastat n Calcium n Calcium in Calcium metFORMIN metFORMIN No metFORMIN HCl HCl HCl Lipitor 20 Lipitor 20 No 1{table QD Lipitor 20 MG MG t} MG Cyclobenzap Cyclobenzap No Cyclobenza rine HCl rine HCl karthik HCl Irbesartan Irbesartan No 1{table QD Irbesartan 75 MG 75 MG t} 75 MG Cephalexin Cephalexin No Cephalexin [place] No 1{table QID [place] 7.5-325 MG 7.5-325 MG t_as_ne 7.5-325 MG eded} Cyclobenzap Cyclobenzap No Cyclobenza rine HCl rine HCl karthik HCl predniSONE predniSONE No predniSONE Lipitor 20 Lipitor 20 No 1{table QD Lipitor 20 MG MG t} MG Irbesartan Irbesartan No 1{table QD Irbesartan 75 MG 75 MG t} 75 MG Mobic 7.5 Mobic 7.5 No 1{table QD Mobic 7.5 MG MG t} MG Diclofenac Diclofenac No Diclofenac Sodium Sodium Sodium traMADol traMADol No traMADol HCl HCl HCl Atorvastati Atorvastati No Atorvastat n Calcium n Calcium in Calcium glipiZIDE glipiZIDE No glipiZIDE ER 5 MG ER 5 MG ER 5 MG Victoza Victoza No Victoza metFORMIN metFORMIN No metFORMIN HCl HCl HCl Testosteron Testosteron No Testostero e Cypionate e Cypionate ne 200 MG/ML 200 MG/ML Cypionate 200 MG/ML Cephalexin Cephalexin No Cephalexin [place] No 1{table QID [place] 7.5-325 MG 7.5-325 MG t_as_ne 7.5-325 MG eded} Cyclobenzap Cyclobenzap No Cyclobenza rine HCl rine HCl karthik HCl predniSONE predniSONE No predniSONE Lipitor 20 Lipitor 20 No 1{table QD Lipitor 20 MG MG t} MG Irbesartan Irbesartan No 1{table QD Irbesartan 75 MG 75 MG t} 75 MG Mobic 7.5 Mobic 7.5 No 1{table QD Mobic 7.5 MG MG t} MG Diclofenac Diclofenac No Diclofenac Sodium Sodium Sodium traMADol traMADol No traMADol HCl HCl HCl Atorvastati Atorvastati No Atorvastat n Calcium n Calcium in Calcium glipiZIDE glipiZIDE No glipiZIDE ER 5 MG ER 5 MG ER 5 MG Victoza Victoza No Victoza metFORMIN metFORMIN No metFORMIN HCl HCl HCl Testosteron Testosteron No Testostero e Cypionate e Cypionate ne 200 MG/ML 200 MG/ML Cypionate 200 MG/ML Cephalexin Cephalexin No Cephalexin [place] No 1{table QID [place] 7.5-325 MG 7.5-325 MG t_as_ne 7.5-325 MG eded} Cyclobenzap Cyclobenzap No Cyclobenza rine HCl rine HCl karthik HCl predniSONE predniSONE No predniSONE Lipitor 20 Lipitor 20 No 1{table QD Lipitor 20 MG MG t} MG Irbesartan Irbesartan No 1{table QD Irbesartan 75 MG 75 MG t} 75 MG Mobic 7.5 Mobic 7.5 No 1{table QD Mobic 7.5 MG MG t} MG Diclofenac Diclofenac No Diclofenac Sodium Sodium Sodium traMADol traMADol No traMADol HCl HCl HCl Atorvastati Atorvastati No Atorvastat n Calcium n Calcium in Calcium glipiZIDE glipiZIDE No glipiZIDE ER 5 MG ER 5 MG ER 5 MG Victoza Victoza No Victoza metFORMIN metFORMIN No metFORMIN HCl HCl HCl Testosteron Testosteron No Testostero e Cypionate e Cypionate ne 200 MG/ML 200 MG/ML Cypionate 200 MG/ML Cephalexin Cephalexin No Cephalexin [place] No 1{table QID [place] 7.5-325 MG 7.5-325 MG t_as_ne 7.5-325 MG eded} Cyclobenzap Cyclobenzap No Cyclobenza rine HCl rine HCl karthik HCl predniSONE predniSONE No predniSONE Lipitor 20 Lipitor 20 No 1{table QD Lipitor 20 MG MG t} MG Irbesartan Irbesartan No 1{table QD Irbesartan 75 MG 75 MG t} 75 MG Mobic 7.5 Mobic 7.5 No 1{table QD Mobic 7.5 MG MG t} MG Diclofenac Diclofenac No Diclofenac Sodium Sodium Sodium traMADol traMADol No traMADol HCl HCl HCl Atorvastati Atorvastati No Atorvastat n Calcium n Calcium in Calcium glipiZIDE glipiZIDE No glipiZIDE ER 5 MG ER 5 MG ER 5 MG Victoza Victoza No Victoza metFORMIN metFORMIN No metFORMIN HCl HCl HCl Testosteron Testosteron No Testostero e Cypionate e Cypionate ne 200 MG/ML 200 MG/ML Cypionate 200 MG/ML Atorvastati Atorvastati No Atorvastat n Calcium n Calcium in Calcium [place] No 1{table QID [place] 7.5-325 MG 7.5-325 MG t_as_ne 7.5-325 MG eded} predniSONE predniSONE No predniSONE metFORMIN metFORMIN No metFORMIN HCl HCl HCl Lipitor 20 Lipitor 20 No 1{table QD Lipitor 20 MG MG t} MG Cyclobenzap Cyclobenzap No Cyclobenza rine HCl rine HCl karthik HCl glipiZIDE glipiZIDE No glipiZIDE ER 5 MG ER 5 MG ER 5 MG Testosteron Testosteron No Testostero e Cypionate e Cypionate ne 200 MG/ML 200 MG/ML Cypionate 200 MG/ML Cephalexin Cephalexin No Cephalexin Mobic 7.5 Mobic 7.5 No 1{table QD Mobic 7.5 MG MG t} MG Irbesartan Irbesartan No 1{table QD Irbesartan 75 MG 75 MG t} 75 MG Diclofenac Diclofenac No Diclofenac Sodium Sodium Sodium traMADol traMADol No traMADol HCl HCl HCl Victoza Victoza No Victoza Hudson Hudson No 1{table QID Hudson 7.5-325 MG 7.5-325 MG t_as_ne 7.5-325 MG eded} Victoza Victoza No Victoza Atorvastati Atorvastati No Atorvastat n Calcium n Calcium in Calcium Lipitor 20 Lipitor 20 No 1{table QD Lipitor 20 MG MG t} MG Cyclobenzap Cyclobenzap No Cyclobenza rine HCl rine HCl karthik HCl metFORMIN metFORMIN No metFORMIN HCl HCl HCl Diclofenac Diclofenac No Diclofenac Sodium Sodium Sodium Testosteron Testosteron No Testostero e Cypionate e Cypionate ne 200 MG/ML 200 MG/ML Cypionate 200 MG/ML predniSONE predniSONE No predniSONE Irbesartan Irbesartan No 1{table QD Irbesartan 75 MG 75 MG t} 75 MG traMADol traMADol No traMADol HCl HCl HCl glipiZIDE glipiZIDE No glipiZIDE ER 5 MG ER 5 MG ER 5 MG Cephalexin Cephalexin No Cephalexin Mobic 7.5 Mobic 7.5 No 1{table QD Mobic 7.5 MG MG t} MG Cephalexin Cephalexin No Cephalexin Testosteron Testosteron No Testostero e Cypionate e Cypionate ne 200 MG/ML 200 MG/ML Cypionate 200 MG/ML predniSONE predniSONE No predniSONE [place] No 1{table QID Hudson 7.5-325 MG 7.5-325 MG t_as_ne 7.5-325 MG eded} Irbesartan Irbesartan No 1{table QD Irbesartan 75 MG 75 MG t} 75 MG Mobic 7.5 Mobic 7.5 No 1{table QD Mobic 7.5 MG MG t} MG Cyclobenzap Cyclobenzap No Cyclobenza rine HCl rine HCl karthik HCl Lipitor 20 Lipitor 20 No 1{table QD Lipitor 20 MG MG t} MG glipiZIDE glipiZIDE No glipiZIDE ER 5 MG ER 5 MG ER 5 MG metFORMIN metFORMIN No metFORMIN HCl HCl HCl Diclofenac Diclofenac No Diclofenac Sodium Sodium Sodium Victoza Victoza No Victoza Atorvastati Atorvastati No Atorvastat n Calcium n Calcium in Calcium traMADol traMADol No traMADol HCl HCl HCl Irbesartan Irbesartan No 1{table QD Irbesartan 75 MG 75 MG t} 75 MG Atorvastati Atorvastati No Atorvastat n Calcium n Calcium in Calcium glipiZIDE glipiZIDE No glipiZIDE ER 5 MG ER 5 MG ER 5 MG Cyclobenzap Cyclobenzap No Cyclobenza rine HCl rine HCl karthik HCl Victoza Victoza No Victoza metFORMIN metFORMIN No metFORMIN HCl HCl HCl predniSONE predniSONE No predniSONE Mobic 7.5 Mobic 7.5 No 1{table QD Mobic 7.5 MG MG t} MG traMADol traMADol No traMADol HCl HCl HCl Diclofenac Diclofenac No Diclofenac Sodium Sodium Sodium Lipitor 20 Lipitor 20 No 1{table QD Lipitor 20 MG MG t} MG Cephalexin Cephalexin No Cephalexin [place] No 1{table QID Hudson 7.5-325 MG 7.5-325 MG t_as_ne 7.5-325 MG eded} Testosteron Testosteron No Testostero e Cypionate e Cypionate ne 200 MG/ML 200 MG/ML Cypionate 200 MG/ML Irbesartan Irbesartan No 1{table QD 75 MG 75 MG t} Atorvastati Atorvastati No n Calcium n Calcium glipiZIDE glipiZIDE No ER 5 MG ER 5 MG Cyclobenzap Cyclobenzap No rine HCl rine HCl Victoza Victoza No metFORMIN metFORMIN No HCl HCl predniSONE predniSONE No Mobic 7.5 Mobic 7.5 No 1{table QD MG MG t} traMADol traMADol No HCl HCl Diclofenac Diclofenac No Sodium Sodium Lipitor 20 Lipitor 20 No 1{table QD MG MG t} Cephalexin Cephalexin No [place] No 1{table QID 7.5-325 MG 7.5-325 MG t_as_ne eded} Testosteron Testosteron No e Cypionate e Cypionate 200 MG/ML 200 MG/ML Irbesartan Irbesartan No 1{table QD Irbesartan 75 MG 75 MG t} 75 MG Atorvastati Atorvastati No Atorvastat n Calcium n Calcium in Calcium glipiZIDE glipiZIDE No glipiZIDE ER 5 MG ER 5 MG ER 5 MG Cyclobenzap Cyclobenzap No Cyclobenza rine HCl rine HCl karthik HCl Victoza Victoza No Victoza metFORMIN metFORMIN No metFORMIN HCl HCl HCl predniSONE predniSONE No predniSONE Mobic 7.5 Mobic 7.5 No 1{table QD Mobic 7.5 MG MG t} MG traMADol traMADol No traMADol HCl HCl HCl Diclofenac Diclofenac No Diclofenac Sodium Sodium Sodium Lipitor 20 Lipitor 20 No 1{table QD Lipitor 20 MG MG t} MG Cephalexin Cephalexin No Cephalexin [place] No 1{table QID Hudson 7.5-325 MG 7.5-325 MG t_as_ne 7.5-325 MG eded} Testosteron Testosteron No Testostero e Cypionate e Cypionate ne 200 MG/ML 200 MG/ML Cypionate 200 MG/ML Irbesartan Irbesartan No 1{table QD 75 MG 75 MG t} Atorvastati Atorvastati No n Calcium n Calcium glipiZIDE glipiZIDE No ER 5 MG ER 5 MG Cyclobenzap Cyclobenzap No rine HCl rine HCl Victoza Victoza No metFORMIN metFORMIN No HCl HCl predniSONE predniSONE No Mobic 7.5 Mobic 7.5 No 1{table QD MG MG t} traMADol traMADol No HCl HCl Diclofenac Diclofenac No Sodium Sodium Lipitor 20 Lipitor 20 No 1{table QD MG MG t} Cephalexin Cephalexin No [place] No 1{table QID 7.5-325 MG 7.5-325 MG t_as_ne eded} Testosteron Testosteron No e Cypionate e Cypionate 200 MG/ML 200 MG/ML Diclofenac Diclofenac No Diclofenac Sodium Sodium Sodium [place] No 1{table QID Hudson 7.5-325 MG 7.5-325 MG t_as_ne 7.5-325 MG eded} Testosteron Testosteron No Testostero e Cypionate e Cypionate ne 200 MG/ML 200 MG/ML Cypionate 200 MG/ML Cyclobenzap Cyclobenzap No Cyclobenza rine HCl rine HCl karthik HCl predniSONE predniSONE No predniSONE Cephalexin Cephalexin No Cephalexin Metformin Metformin No 1{table BID Metformin HCl 1000 MG HCl 1000 MG t_with_ HCl 1000 meals} MG Mobic 7.5 Mobic 7.5 No 1{table QD Mobic 7.5 MG MG t} MG Irbesartan Irbesartan No 1{table QD Irbesartan 75 MG 75 MG t} 75 MG metFORMIN metFORMIN No metFORMIN HCl HCl HCl Atorvastati Atorvastati No 1{table QD Atorvastat n Calcium n Calcium t} in Calcium 20 MG 20 MG 20 MG traMADol traMADol No traMADol HCl HCl HCl Victoza Victoza No Victoza glipiZIDE glipiZIDE No glipiZIDE ER 5 MG ER 5 MG ER 5 MG Tamsulosin Tamsulosin No 1{capsu QD Tamsulosin HCl 0.4 MG HCl 0.4 MG le} HCl 0.4 MG Jardiance Jardiance No 1{table QD Jardiance 10 MG 10 MG t} 10 MG Lipitor 20 Lipitor 20 No 1{table QD Lipitor 20 MG MG t} MG Diclofenac Diclofenac No Diclofenac Sodium Sodium Sodium [place] No 1{table QID Hudson 7.5-325 MG 7.5-325 MG t_as_ne 7.5-325 MG eded} Testosteron Testosteron No Testostero e Cypionate e Cypionate ne 200 MG/ML 200 MG/ML Cypionate 200 MG/ML Cyclobenzap Cyclobenzap No Cyclobenza rine HCl rine HCl karthik HCl predniSONE predniSONE No predniSONE Cephalexin Cephalexin No Cephalexin Metformin Metformin No 1{table BID Metformin HCl 1000 MG HCl 1000 MG t_with_ HCl 1000 meals} MG Mobic 7.5 Mobic 7.5 No 1{table QD Mobic 7.5 MG MG t} MG Irbesartan Irbesartan No 1{table QD Irbesartan 75 MG 75 MG t} 75 MG metFORMIN metFORMIN No metFORMIN HCl HCl HCl Atorvastati Atorvastati No 1{table QD Atorvastat n Calcium n Calcium t} in Calcium 20 MG 20 MG 20 MG traMADol traMADol No traMADol HCl HCl HCl Victoza Victoza No Victoza glipiZIDE glipiZIDE No glipiZIDE ER 5 MG ER 5 MG ER 5 MG Tamsulosin Tamsulosin No 1{capsu QD Tamsulosin HCl 0.4 MG HCl 0.4 MG le} HCl 0.4 MG Jardiance Jardiance No 1{table QD Jardiance 10 MG 10 MG t} 10 MG Lipitor 20 Lipitor 20 No 1{table QD Lipitor 20 MG MG t} MG Cephalexin Cephalexin No Cephalexin Atorvastati Atorvastati No 1{table QD Atorvastat n Calcium n Calcium t} in Calcium 20 MG 20 MG 20 MG traMADol traMADol No traMADol HCl HCl HCl Lipitor 20 Lipitor 20 No 1{table QD Lipitor 20 MG MG t} MG Metformin Metformin No 1{table BID Metformin HCl 1000 MG HCl 1000 MG t_with_ HCl 1000 meals} MG Mobic 7.5 Mobic 7.5 No 1{table QD Mobic 7.5 MG MG t} MG Victoza Victoza No Victoza predniSONE predniSONE No predniSONE Diclofenac Diclofenac No Diclofenac Sodium Sodium Sodium Irbesartan Irbesartan No 1{table QD Irbesartan 75 MG 75 MG t} 75 MG [place] No 1{table QID Hudson 7.5-325 MG 7.5-325 MG t_as_ne 7.5-325 MG eded} glipiZIDE glipiZIDE No glipiZIDE ER 5 MG ER 5 MG ER 5 MG Cyclobenzap Cyclobenzap No Cyclobenza rine HCl rine HCl karthik HCl Tamsulosin Tamsulosin No 1{capsu QD Tamsulosin HCl 0.4 MG HCl 0.4 MG le} HCl 0.4 MG Jardiance Jardiance No 1{table QD Jardiance 10 MG 10 MG t} 10 MG metFORMIN metFORMIN No metFORMIN HCl HCl HCl Testosteron Testosteron No Testostero e Cypionate e Cypionate ne 200 MG/ML 200 MG/ML Cypionate 200 MG/ML Cephalexin Cephalexin No Cephalexin Atorvastati Atorvastati No 1{table QD Atorvastat n Calcium n Calcium t} in Calcium 20 MG 20 MG 20 MG traMADol traMADol No traMADol HCl HCl HCl Lipitor 20 Lipitor 20 No 1{table QD Lipitor 20 MG MG t} MG Metformin Metformin No 1{table BID Metformin HCl 1000 MG HCl 1000 MG t_with_ HCl 1000 meals} MG Mobic 7.5 Mobic 7.5 No 1{table QD Mobic 7.5 MG MG t} MG Victoza Victoza No Victoza predniSONE predniSONE No predniSONE Diclofenac Diclofenac No Diclofenac Sodium Sodium Sodium Irbesartan Irbesartan No 1{table QD Irbesartan 75 MG 75 MG t} 75 MG [place] No 1{table QID Hudson 7.5-325 MG 7.5-325 MG t_as_ne 7.5-325 MG eded} glipiZIDE glipiZIDE No glipiZIDE ER 5 MG ER 5 MG ER 5 MG Cyclobenzap Cyclobenzap No Cyclobenza rine HCl rine HCl karthik HCl Tamsulosin Tamsulosin No 1{capsu QD Tamsulosin HCl 0.4 MG HCl 0.4 MG le} HCl 0.4 MG Jardiance Jardiance No 1{table QD Jardiance 10 MG 10 MG t} 10 MG metFORMIN metFORMIN No metFORMIN HCl HCl HCl Testosteron Testosteron No Testostero e Cypionate e Cypionate ne 200 MG/ML 200 MG/ML Cypionate 200 MG/ML Tamsulosin Tamsulosin No 1{capsu QD Tamsulosin HCl 0.4 MG HCl 0.4 MG le} HCl 0.4 MG Magnesium Magnesium No 2{table QD Magnesium 200 MG 200 MG ts_with 200 MG _a_meal } Metformin Metformin No 1{table BID Metformin HCl 1000 MG HCl 1000 MG t_with_ HCl 1000 meals} MG Centrum Men Centrum Men No Centrum - - Men - Vitamin B12 Vitamin B12 No Vitamin 100 MCG 100 MCG B12 100 MCG Irbesartan Irbesartan No 1{table QD Irbesartan 75 MG 75 MG t} 75 MG Jardiance Jardiance No 1{table QD Jardiance 10 MG 10 MG t} 10 MG Plavix 75 Plavix 75 No 1{table QD Plavix 75 MG MG t} MG Tamsulosin Tamsulosin No 1{capsu QD Tamsulosin HCl 0.4 MG HCl 0.4 MG le} HCl 0.4 MG Magnesium Magnesium No 2{table QD Magnesium 200 MG 200 MG ts_with 200 MG _a_meal } Metformin Metformin No 1{table BID Metformin HCl 1000 MG HCl 1000 MG t_with_ HCl 1000 meals} MG Centrum Men Centrum Men No Centrum - - Men - Vitamin B12 Vitamin B12 No Vitamin 100 MCG 100 MCG B12 100 MCG Irbesartan Irbesartan No 1{table QD Irbesartan 75 MG 75 MG t} 75 MG Jardiance Jardiance No 1{table QD Jardiance 10 MG 10 MG t} 10 MG Plavix 75 Plavix 75 No 1{table QD Plavix 75 MG MG t} MG glipiZIDE glipiZIDE No glipiZIDE ER 5 MG ER 5 MG ER 5 MG Cyclobenzap Cyclobenzap No Cyclobenza rine HCl rine HCl karthik HCl Irbesartan Irbesartan No 1{table QD Irbesartan 75 MG 75 MG t} 75 MG Victoza Victoza No Victoza Diclofenac Diclofenac No Diclofenac Sodium Sodium Sodium Testosteron Testosteron No Testostero e Cypionate e Cypionate ne 200 MG/ML 200 MG/ML Cypionate 200 MG/ML traMADol traMADol No traMADol HCl HCl HCl Atorvastati Atorvastati No Atorvastat n Calcium n Calcium in Calcium Cephalexin Cephalexin No Cephalexin metFORMIN metFORMIN No metFORMIN HCl HCl HCl predniSONE predniSONE No predniSONE Lipitor 20 Lipitor 20 No 1{table QD Lipitor 20 MG MG t} MG Mobic 7.5 Mobic 7.5 No 1{table QD Mobic 7.5 MG MG t} MG [place] Hudson No 1{table QID Hudson 7.5-325 MG 7.5-325 MG t_as_ne 7.5-325 MG eded} Mobic 7.5 Mobic 7.5 No 1{table QD Mobic 7.5 MG MG t} MG Irbesartan Irbesartan No 1{table QD Irbesartan 75 MG 75 MG t} 75 MG [place] Hudson No 1{table QID Hudson 7.5-325 MG 7.5-325 MG t_as_ne 7.5-325 MG eded} metFORMIN metFORMIN No metFORMIN HCl HCl HCl Victoza Victoza No Victoza Diclofenac Diclofenac No Diclofenac Sodium Sodium Sodium predniSONE predniSONE No predniSONE Vital Signs Vital Name Observation Time Observation Value Comments Source height 2022-07-16 09:00:00 69 [in_i] [facility] weight 2022-07-16 09:00:00 220 [lb_av] [facility] temperature 2022-07-16 09:00:00 97.6 [degF] [facility] bmi 2022-07-16 09:00:00 32.48 kg/m2 [facility] oximetry 2022-07-16 09:00:00 98 % [facility] respiratory rate 2022-07-16 09:00:00 16 /min Comm on [facility] blood pressure 2022-07-16 09:00:00 140 mm[Hg] [facility] - systolic [facility] blood pressure 2022-07-16 09:00:00 63 mm[Hg] [facility] - diastolic [facility] height 2022-06-18 08:30:00 69 [in_i] [facility] weight 2022-06-18 08:30:00 220 [lb_av] [facility] temperature 2022-06-18 08:30:00 97.4 [degF] [facility] bmi 2022-06-18 08:30:00 32.48 kg/m2 [facility] oximetry 2022-06-18 08:30:00 97 % [facility] respiratory rate 2022-06-18 08:30:00 16 /min Comm on [facility] blood pressure 2022-06-18 08:30:00 131 mm[Hg] [facility] - systolic [facility] blood pressure 2022-06-18 08:30:00 63 mm[Hg] [facility] - diastolic [facility] height 2021-12-23 15:15:00 69 [in_i] [facility] weight 2021-12-23 15:15:00 221 [lb_av] [facility] temperature 2021-12-23 15:15:00 97.1 [degF] [facility] bmi 2021-12-23 15:15:00 32.63 kg/m2 [facility] oximetry 2021-12-23 15:15:00 96 % [facility] respiratory rate 2021-12-23 15:15:00 16 /min Comm on [facility] blood pressure 2021-12-23 15:15:00 145 mm[Hg] [facility] - systolic [facility] blood pressure 2021-12-23 15:15:00 67 mm[Hg] [facility] - diastolic [facility] height 2021-11-25 10:15:00 69 [in_i] [facility] weight 2021-11-25 10:15:00 228 [lb_av] [facility] temperature 2021-11-25 10:15:00 98.6 [degF] [facility] bmi 2021-11-25 10:15:00 33.67 kg/m2 [facility] oximetry 2021-11-25 10:15:00 99 % [facility] blood pressure 2021-11-25 10:15:00 132 mm[Hg] [facility] blood pressure 2021-11-25 10:15:00 78 mm[Hg] [facility] height 2021-11-07 16:45:00 69 [in_i] [facility] - [facility] weight 2021-11-07 16:45:00 228 [lb_av] [facility] temperature 2021-11-07 16:45:00 97.6 [degF] [facility] - [facility] bmi 2021-11-07 16:45:00 33.67 kg/m2 [facility] - [facility] oximetry 2021-11-07 16:45:00 94 % [facility] - [facility] blood pressure 2021-11-07 16:45:00 153 mm[Hg] [facility] - systolic [facility] blood pressure 2021-11-07 16:45:00 75 mm[Hg] [facility] - diastolic [facility] height 2021-10-31 14:30:00 69 [in_i] [facility] - [facility] weight 2021-10-31 14:30:00 226 [lb_av] [facility] - [facility] temperature 2021-10-31 14:30:00 98.2 [degF] [facility] - [facility] bmi 2021-10-31 14:30:00 33.37 kg/m2 [facility] - [facility] oximetry 2021-10-31 14:30:00 98 % [facility] - [facility] respiratory rate 2021-10-31 14:30:00 18 /min Comm on [facility] - [facility] blood pressure 2021-10-31 14:30:00 142 mm[Hg] [facility] - systolic [facility] blood pressure 2021-10-31 14:30:00 68 mm[Hg] [facility] - diastolic [facility] Systolic (mm Hg) 2021-06-06 15:13:00 [place] Diastolic (mm Hg) 2021-06-06 15:13:00 Mem orial Abdulkadir Heart Rate 2021-06-06 15:13:00 [facility] [place] Respitory Rate 2021-06-06 15:13:00 Memori al Abdulkadir Height 2021-06-06 15:13:00 170.18 cm [facility] [place] Weight 2021-06-06 15:13:00 [facility] BMI Calculated 2021-06-06 15:13:00 Memori al Abdulkadir Systolic (mm Hg) 2021-05-02 15:13:00 [place] rial Abdulkadir Diastolic (mm Hg) 2021-05-02 15:13:00 Mem orial Abdulkadir Heart Rate 2021-05-02 15:13:00 [facility] Respitory Rate 2021-05-02 15:13:00 Memori al [place] Height 2021-05-02 15:13:00 175.26 cm [facility] Weight 2021-05-02 15:13:00 [facility] BMI Calculated 2021-05-02 15:13:00 Memori al [place] Systolic (mm Hg) 2021-04-09 19:44:00 [place] rial Abdulakdir Diastolic (mm Hg) 2021-04-09 19:44:00 Mem orial [place] Heart Rate 2021-04-09 19:44:00 [facility] Respitory Rate 2021-04-09 19:44:00 Mem[facility] al [place] Weight 2021-04-09 19:44:00 [facility] Procedures Procedure Date / Time Performed Performing Clinician Sour e 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 Knee replacement [facility] Avinash n Neck procedure [facility] Abd[facility]adir Primary anterior Isaiah Avinash n decompression of cervical spinal cord and fusion Procedure on elbow [facility] Herm rigoberto Circumcision<sup>1</sup> Memoria l [place] Encounters Start End Encounter Admission Attending Care Care Encounter Source Date/Time Date/Time Type Type Clinicians Facility Department ID 2022-01-01 Outpatient Samuel, STLMLC [facility] [id number] Common 10:55:01 Mikey [facility] 2021-12-30 Outpatient Samuel, STLMLC [facility] [id number] Common 15:07:00 Mikey [facility] 2021-12-25 Outpatient Samuel, STLMLC [facility] [id number] Common 14:23:14 Mikey [id number] [facility] 2021-12-25 Outpatient Samuel, STLMLC ST[facility] [id number] Common 14:20:39 Mikey [id number] [facility] 2021-12-25 Outpatient Samuel, STLMLC ST[facility] [id number] Common 13:13:26 Mikey [id number] [facility] 2021-12-25 Outpatient Samuel, STLMLC ST[facility] [id number] Common 12:51:29 Mikey [id number] [facility] 2022-07-22 2022-07-22 (TEL) STLMLC STLMLC [id number] Co mmon 00:00:00 00:00:00 [facility] 2022-07-16 2022-07-16 OFFICE STLMLC STLMLC [id number] Co mmon 00:00:00 00:00:00 VISIT [facility] PT - [facility] 2 [facility] 2022-06-18 2022-06-18 OFFICE STLMLC STLMLC [id number] Co mmon 00:00:00 00:00:00 VISIT [facility] PT - [facility] 2 [facility] 2022-06-11 2022-06-11 ([place]) Nurse STLMLC STLMLC [id number] Common 00:00:00 00:00:00 Visit [facility] 2022-01-16 2022-01-16 (TEL) STLMLC STLMLC [id number] Co mmon 00:00:00 00:00:00 [facility] 2021-12-31 2021-12-31 (TEL) STLMLC STLMLC [id number] Co mmon 00:00:00 00:00:00 [facility] 2021-12-23 2021-12-23 OFFICE STLMLC STLMLC [id number] Co mmon 00:00:00 00:00:00 VISIT [facility] PT LEVEL 3 - [facility] 2021-12-12 2021-12-12 (TEL) STLMLC STLMLC [id number] Co mmon 00:00:00 00:00:00 [facility] 2021-12-04 2021-12-04 ([place]) Nurse STLMLC STLMLC [id number] Common 00:00:00 00:00:00 Visit [facility] 2021-11-25 2021-11-25 ([place]) Nurse STLMLC STLMLC [id number] Common 00:00:00 00:00:00 Visit [facility] 2021-11-14 2021-11-14 ([place]) Nurse STLMLC STLMLC [id number] Common 00:00:00 00:00:00 Visit [facility] 2021-11-13 2021-11-13 (TEL) STLMLC STLMLC [id number] Co mmon 00:00:00 00:00:00 [facility] 2021-11-07 2021-11-07 OFFICE STLMLC STLMLC [id number] Co mmon 00:00:00 00:00:00 VISIT [facility] ESTAB PT - [facility] LEVEL 2 [facility] 2021-11-05 2021-11-05 (TEL) STLMLC STLMLC [id number] Co mmon 00:00:00 00:00:00 [facility] 2021-10-31 2021-10-31 OFFICE STLMLC STLMLC [id number] Co mmon 00:00:00 00:00:00 VISIT [facility] ESTAB PT - [facility] LEVEL 5 [facility] 2021-10-17 2021-10-17 (TEL) STLMLC STLMLC [id number] Co mmon 00:00:00 00:00:00 [facility] 2021-10-02 2021-10-02 (TEL) STLMLC STLMLC [id number] Co mmon 00:00:00 00:00:00 [facility] 2021-09-04 2021-09-04 ([place]) Nurse STLMLC STLMLC [id number] Common 00:00:00 00:00:00 Visit [facility] 2021-08-15 2021-08-15 (ESTPT) STLMLC STLMLC [id number] Co mmon 00:00:00 00:00:00 Establishe Spi rit d Patient - [facility] 2021-08-08 2021-08-08 Ambulatory nullFlavo MNA [id number] Memoria 16:15:00 16:15:00 Pre-Reg r Neurology 03 l Madisonallyn Panchal 2021-08-08 2021-08-08 Outpatient MHIE MHIE [id number] Memoria 11:15:00 11:15:00 03 l Abdulkadir 2021-08-08 2021-08-08 Outpatient ADRIAN GannMISCHCHALO MISCHER [id number] 11:15:00 11:15:00 Telly Carlson 2021-08-01 2021-08-01 (ESTPT) STLMLC STLMLC [id number] Co mmon 00:00:00 00:00:00 Establishe Spi rit d Patient - [facility] 2021-07-10 2021-07-10 Outpatient STLMLC STLMLC [id number] Common 00:00:00 00:00:00 [facility] 2021-07-10 2021-07-10 Outpatient STLMLC STLMLC [id number] Common 00:00:00 00:00:00 [facility] 2021-07-02 2021-07-02 Outpatient STLMLC STLMLC [id number] Common 00:00:00 00:00:00 [facility] 2021-06-25 2021-06-25 Outpatient STLMLC STLMLC [id number] Common 00:00:00 00:00:00 [facility] 2021-06-17 2021-06-17 Outpatient STLMLC STLMLC [id number] Common 00:00:00 00:00:00 [facility] 2021-06-06 2021-06-07 Outpatient nullFlavo MNA [id number] Mem[facility] 15:00:00 04:59:59 r Neurology 02 l Kelly Panchal 2021-06-06 2021-06-06 Outpatient JASS GannSCHER MHMISCHER [id number] 10:00:00 23:59:59 Telly 02 Aldo 2021-06-06 2021-06-06 Outpatient MHIE MHIE [id number] Memoria 10:00:00 10:00:00 02 adilia Panchal 2021-05-15 2021-05-15 Outpatient STLMLC STLMLC [id number] Common 00:00:00 00:00:00 [facility] 2021-05-09 2021-05-09 Outpatient STLMLC STLMLC [id number] Common 00:00:00 00:00:00 [facility] 2021-05-02 2021-05-03 Outpatient nullFlavo MNA [id number] Memoria 15:00:00 04:59:59 r Neurology 01 l Madisonallyn Milanann 2021-05-02 2021-05-02 Outpatient JASS GannSCHER MHMISCHER [id number] 10:00:00 23:59:59 Telly 01 Aldo 2021-05-02 2021-05-02 Outpatient MHIE MHIE [id number] Memoria 10:00:00 10:00:00 01 adilia Panchal 2021-04-09 2021-04-10 Outpatient nullFlavo MNA [id number] Memoria 19:45:00 04:59:59 r Neurology 00 l Madisonallyn Milanann 2021-04-09 2021-04-09 Outpatient JASS GannSCHER MHMISCHER [id number] 14:45:00 23:59:59 Telly 00 Aldo 2021-04-09 2021-04-09 Outpatient MHIE MHIE [id number] Memoria 14:45:00 14:45:00 00 adilia MilanAbdulkadir 2021-04-01 2021-04-01 Outpatient STLMLC STL[facility]C [id number] Common 00:00:00 00:00:00 [facility] 2019-04-11 2019-04-11 [id number] Common 16:12:00 16:12:00 [facility] 2019-04-11 2019-04-11 [facility] [id number] Common 13:28:00 13:28:00 [facility] 2019-04-11 2019-04-11 [facility] [id number] Common 08:30:00 08:30:00 [facility] 2019-03-14 2019-03-14 [facility] [id number] Common 09:48:00 09:48:00 [facility] 2019-03-11 2019-03-11 [facility] [id number] Common 08:00:00 08:00:00 [facility] - [facility] 2019-02-24 2019-02-24 [facility] [id number] Common 09:18:00 09:18:00 [facility] 2019-02-03 2019-02-03 [facility] [id number] Common 09:30:00 09:30:00 t [facility] 2019-01-25 2019-01-25 [facility] [id number] Common 10:43:00 10:43:00 t [facility] - [facility] 2019-01-24 2019-01-24 [facility] [id number] Common 10:00:00 10:00:00 [facility] Results Test Description Test Time Test Comments Results Result Comments Source ANEMIA STUDY 2021-04-23 17:24:00 Test Item Value Reference Range Interpretation Comme nts Vitamin B12 Lvl (test code = Vitamin B12 Lvl) [id number] [id number] 17:24:00 Test Item Value Reference Range Interpretation Comments VITAMIN B1 (THIAMINE) WHOLE BLOOD (test 129 [id number] code = VITAMIN B1 (THIAMINE) WHOLE BLOOD) [id number] 17:24:00 Test Item Value Reference Range Interpretation Comments Sed Rate (test code = Sed Rate) 2 [id number] 17:24:00 Test Item Value Reference Range Interpretation Comments ZUHAIR Ser Interp (test code = ZUHAIR SEE COMMENT Ser Interp) [id number] 17:24:00 Test Item Value Reference Range Interpretation Comments Copper Lvl (test code = Copper Lvl) 86 70-175 [facility]
[2023-09-30 17:06] LABS: Absolute Lymphocytes (CBC) 0.9 K/uL (0.7-4.9); Hematocrit 43.2 % (39.6-49.0); Lymphocytes % 17.5 % (15.3-44.8); MCV 88.3 fL (80-100); Platelets 228 thou/uL (152-406); RBC Red Blood Cell Count 4.89 M/uL (4.33-5.43)
--- NOTE | 2023-09-30 18:22 | RAD REPORT ---
EXAM DESCRIPTION: CT - Head Brain Wo Cont - 09/30/2023 5:20 pm CLINICAL HISTORY: SLURRED SPEECH COMPARISON: Head Brain W/Wo Con dated 11/27/2022 TECHNIQUE: Noncontrast head CT images were obtained without IV contrast. Multiplanar reformats were generated and reviewed. All CT scans are performed using dose optimization technique as appropriate and may include automated exposure control or mA/KV adjustment according to patient size. FINDINGS: No intracranial hemorrhage, mass, or edema. Midline structures are unremarkable. Normal ventricular caliber for age. Kidd-white matter differentiation is preserved, without evidence of acute infarct. No abnormal extra- axial fluid collections. Mastoid air cells and visualized portions of the paranasal sinuses are clear. No acute bony findings. IMPRESSION: No evidence of an acute intracranial process.
--- NOTE | 2023-09-30 18:26 | RAD REPORT ---
EXAM DESCRIPTION: MRI - Brain Wo Cont - 09/30/2023 5:59 pm CLINICAL HISTORY: SLURRED SPEECH COMPARISON: Noncontrast head CT of the same day TECHNIQUE: Multiplanar multisequence MRI of the brain performed without IV contrast. FINDINGS: No evidence of acute infarct or other diffusion signal abnormality. No evidence of acute intracranial hemorrhage or abnormal extra-axial fluid collections. Ventricular caliber within normal for age. Midline structures are unremarkable. No mass effect or midline shift. Major vascular flow voids are preserved. Mastoid air cells are well aerated. Mild scattered paranasal sinus mucosal thickening. IMPRESSION: No acute intracranial process. No evidence of ventriculomegaly or mass effect.
--- NOTE | 2023-09-30 18:38 | RAD REPORT ---
EXAM DESCRIPTION: LACHELLEChest Single View09/30/2023 6:06 pm CLINICAL HISTORY: CHEST PAIN COMPARISON: Chest Single View dated 07/16/2022; Chest Pa And Lat (2 Views) dated 05/08/2022; Chest Pa A nd Lat (2 Views) dated 07/23/2020; Chest Pa And Lat (2 Views) dated 12/09/2019 TECHNIQUE: Portable AP view of the chest. FINDINGS: The lungs are clear. Elevation of the left hemidiaphragm, with underlying atelectasis, sta ble. No pneumothorax or effusion. The cardiomediastinal contours are unremarkable. IMPRESSION: No acute cardiopulmonary process.
[2023-09-30 19:15] LABS: Magnesium 2.1 mg/dL (1.6-2.4); Potassium 4.2 mEq/L (3.5-5.1); Troponin High Sensitivity 9.4 pg/mL (<58.9)
--- NOTE | 2023-09-30 19:59 | ER ---
Nurse's Notes [facility] Name: Oskar Phillips Age: 68 yrs Sex: Male : 1955 Arrival Date: 09/30/2023 Time: 16:33 Bed 7 Private MD: Diagnosis: Chest pain, unspecified;Pain in right knee;Fall on same level from slipping, tripping and stumbling without subsequent striking against object Presentation: 09/30 16:37 Chief complaint: Patient states: "I called Dr. Samuel 1 hr ago and his nurse said to come mb9 to the ER because it sounded like I was having slurred speech. I've fallen twice in 2 days after tripping. I pulled a muscle in my chest and neck and hurt my right knee.". Coronavirus screen: At this time, the client does not indicate any symptoms associated with coronavirus-19. Ebola Screen: No symptoms or risks identified at this time. Initial Sepsis Screen: Does the patient meet any 2 criteria? No. Patient's initial sepsis screen is negative. Does the patient have a suspected source of infection? No. Patient's initial sepsis screen is negative. Risk Assessment: Do you want to hurt yourself or someone else? Patient reports no desire to harm self or others. Onset of symptoms was September 30, 2023. 16:37 Method Of Arrival: Ambulatory [facility] 16:37 Acuity: FRANK 3 mb9 Triage Assessment: 16:43 General: Appears in no apparent distress. Behavior is calm, cooperative. Pain: mb9 Complains of pain in right leg. Neuro: Dhillon Agitation-Sedation Scale (RASS): 0 - Alert and Calm Level of Consciousness is awake, alert, obeys commands, Oriented to person, place, time, situation, Appropriate for age Senior Operations Analyst are equal bilaterally Moves all extremities. Gait is steady, Speech is normal, Facial symmetry appears normal, Pupils are PERRLA, Intact. Cardiovascular: Patient's skin is warm and dry. Respiratory: Airway is patent Respiratory effort is even, unlabored, Respiratory pattern is regular, symmetrical. GI: No signs and/or symptoms were reported involving the gastrointestinal system. : No signs and/or symptoms were reported regarding the genitourinary system. Derm: Skin is pink, warm \\T\\ dry. Musculoskeletal: Range of motion: intact in all extremities. Historical: - Allergies: 16:40 No Known Allergies; mb9 - Home Meds: 16:40 metformin 1,000 mg oral tablet [Active]; irbesartan 75 mg oral tablet [Active]; mb9 atorvastatin 40 mg oral tablet [Active]; Thaddeus Aspirin Oral [Active]; tamsulosin 0.4 mg oral capsule [Active]; - PMHx: 16:40 diabetes mellitus; Hypercholesterolemia; Hypertensive disorder; mb9 - PSHx: 16:40 Knee surgery (Hypertensive disorder); Back (Hypertensive disorder); Elbow (Hypertensive mb9 disorder); - Immunization history:: Adult Immunizations up to date. - Social history:: Smoking status: Patient denies any tobacco usage or history of. Screenin:52 [facility] ED Fall Risk Assessment (Adult) History of falling in the last 3 months, mb9 including since admission No falls in past 3 months (0 pts) Confusion or Disorientation No (0 pts) Intoxicated or Sedated No (0 pts) Impaired Gait No (0 pts) Mobility Assist Device Used No (0 pt) Altered Elimination No (0 pt) Score/Fall Risk Level 0 - 2 = Low Risk Oriented to surroundings, Maintained a safe environment, Educated pt \\T\\ family on fall prevention, incl call for assistance when getting out of bed. Abuse screen: Denies threats or abuse. Nutritional screening: No deficits noted. Tuberculosis screening: No symptoms or risk factors identified. Assessment: 16:52 Reassessment: see triage assessment. 9 18:28 Reassessment: Patient appears in no apparent distress at this time. No changes from cm10 previously documented assessment. Patient and/or family updated on plan of care and expected duration. Pain level reassessed. Patient is alert, oriented x 3, equal unlabored respirations, skin warm/dry/pink. Patient states symptoms have improved. Vital Signs: 16:37 BP 137 / 59; Pulse 54; Resp 18; Temp 97.5; Pulse Ox 98% on R/A; Weight 96.62 kg; Height mb9 5 ft. 8 in. ; Pain 5/10; 19:30 BP 117 / 71; Pulse 61; Resp 16; Pulse Ox 95% on R/A; cm10 16:37 Body Mass Index 32.39 (96.62 kg, 172.72 cm) [facility] 16:37 Pain Scale: Adult [facility] ED Course: 16:37 Patient arrived in ED. mb9 16:37 Rebecca Hall FNP-C is [facility]. kb 16:37 Rahul Marcus MD is Attending Physician. kb 16:40 Triage completed. mb9 16:43 Arm band placed on. mb9 16:52 Basic Metabolic Panel Sent. mb9 16:52 CBC with Diff Sent. mb9 16:52 Magnesium Sent. mb9 16:52 Troponin HS Sent. mb9 16:52 EKG done, by ED staff, reviewed by Rebecca DARLING. Inserted saline lock: 20 mb9 gauge in left antecubital area, using aseptic technique. 16:52 No provider procedures requiring assistance completed. mb9 17:22 CT Head Brain wo Cont In Process Unspecified. EDMS 17:52 MRI - Brain Wo Cont In Process Unspecified. EDMS 17:55 Patient placed in an exam room, on a stretcher. ll1 18:07 XRAY Chest (1 view) In Process Unspecified. EDMS 19:36 Knee Right 3 View XRAY In Process Unspecified. EDMS 20:08 Patient has correct armband on for positive identification. Call light in reach. Side cm10 rails up X2. Provided Education on: ER process and procedures.. 20:08 IV discontinued, intact, bleeding controlled, No redness/swelling at site. Pressure cm10 dressing applied. Administered Medications: No medications were administered Medication: 16:53 VIS not applicable for this client. mb9 Outcome: 19:59 Discharge ordered by MD. kb 20:09 Discharged to home ambulatory, with significant other, cm10 20:09 Condition: good 20:09 Discharge instructions given to patient, Instructed on discharge instructions, follow up and referral plans. Demonstrated understanding of instructions, follow-up care, 20:09 Patient left the ED. cm10 Signatures: Dispatcher [employer] EDMS Rebecca Hall FNP-C FNP-Ckb Lewis, Lynsay RN RN ll1 Yeimy Dan RN RN mb9 Lilia Mcintosh RN RN cm10 Corrections: (The following items were deleted from the chart) 16:40 16:37 BP 137 / 59; Pulse 54bpm; Resp 18bpm; Pulse Ox 98%; Temp 97.5F; 83.91 kg; Height mb9 5 ft. 4 in.; BMI: 31.7; mb9
--- NOTE | 2023-09-30 19:59 | EDPHYS ---
Physician Documentation [facility] Name: Oskar Phillips Age: 68 yrs Sex: Male : 1955 Arrival Date: 09/30/2023 Time: 16:33 Bed 7 Private MD: ED Physician Rahul Marcus HPI: 10/01 00:30 This 68 yrs old Male presents to ER via Ambulatory with complaints of Slurred kb speech. 00:30 Patient is a 68-year-old male with a history of diabetes, high cholesterol and kb hypertension who presents for slurred speech earlier today. States he tripped walking out of [employer] on Thursday and tripped again today so he called Dr. Samuel's office and the nurse told him he sounded like his speech was slurred and that he needed to come to the ER. said she did not appreciate any slurred speech. Patient reports he believes he is pulled a muscle in his chest whenever he fell the first time because he has had pain to the left chest with movement since then. Denies any other injury from fall. Denies hitting head, LOC.. Historical: - Allergies: 09/30 16:40 No Known Allergies; mb9 - Home Meds: 16:40 metformin 1,000 mg oral tablet [Active]; irbesartan 75 mg oral tablet [Active]; mb9 atorvastatin 40 mg oral tablet [Active]; Thaddeus Aspirin Oral [Active]; tamsulosin 0.4 mg oral capsule [Active]; - PMHx: 16:40 diabetes mellitus; Hypercholesterolemia; Hypertensive disorder; mb9 - PSHx: 16:40 Knee surgery (Hypertensive disorder); Back (Hypertensive disorder); Elbow (Hypertensive mb9 disorder); - Immunization history:: Adult Immunizations up to date. - Social history:: Smoking status: Patient denies any tobacco usage or history of. ROS: 10/01 00:31 Constitutional: Negative for fever, chills, and weight loss, kb Cardiovascular: Positive for chest pain, with movement, of the anterior aspect of left upper chest, All other systems are negative, Exam: 00:31 Constitutional: This is a well developed, well nourished patient who is awake, alert, kb and in no acute distress. Head/Face: Normocephalic, atraumatic. Eyes: Pupils equal round and reactive to light, extra-ocular motions intact. Lids and lashes normal. Conjunctiva and sclera are non-icteric and not injected. Cornea within normal limits. Periorbital areas with no swelling, redness, or edema. ENT: Moist Mucous membranes Cardiovascular: Regular rate Respiratory: Respirations even and unlabored. No increased work of breathing. Talking in full sentences Abdomen/GI: Soft, non-tender. No distention Skin: Warm, dry with normal turgor. Normal color. MS/ Extremity: Pulses equal, no cyanosis. Neurovascular intact. Full, normal range of motion. Neuro: Awake and alert, GCS 15, oriented to person, place, time, and situation. Moves all extremities. Normal gait. 00:31 Chest/axilla: Inspection: normal, Palpation: tenderness, that is mild, of the anterior aspect of left upper chest, that totally reproduces the patient's complaints, Vital Signs: 09/30 16:37 BP 137 / 59; Pulse 54; Resp 18; Temp 97.5; Pulse Ox 98% on R/A; Weight 96.62 kg; Height mb9 5 ft. 8 in. ; Pain 5/10; 19:30 BP 117 / 71; Pulse 61; Resp 16; Pulse Ox 95% on R/A; cm10 16:37 Body Mass Index 32.39 (96.62 kg, 172.72 cm) mb9 16:37 Pain Scale: Adult mb9 MDM: 16:37 Patient medically screened. kb 10/01 00:33 Differential Diagnosis TIA, CVA, abnormal EKG, CA, muscle strain. Data reviewed: vital kb signs, nurses notes. Consideration of Admission/Observation Escalation of care including admission/observation considered. Admission considered for chest pain and slurred speech. Troponin within normal limits, CTA and MRI of brain normal/without acute stroke. Management of patient was discussed with the following: Dr. Marcus. Historians other than the Patient: Spouse/Significant Other: . Counseling: I had a detailed discussion with the patient and/or guardian regarding the historical points, exam findings, and any diagnostic results supporting the discharge/admit diagnosis, lab results, radiology results, the need for outpatient follow up, a family practitioner, to return to the emergency department if symptoms worsen or persist or if there are any questions or concerns that arise at home. 09/30 16:42 Order name: Basic Metabolic Panel; Complete Time: 19:19 kb 09/30 16:42 Order name: CBC with Diff; Complete Time: 17:11 kb 09/30 16:42 Order name: Magnesium; Complete Time: 19:19 kb 09/30 16:42 Order name: Troponin HS; Complete Time: 19:19 kb 09/30 16:42 Order name: XRAY Chest (1 view); Complete Time: 18:43 kb 09/30 16:42 Order name: CT Head Brain wo Cont; Complete Time: 18:24 kb 09/30 16:42 Order name: MRI - Brain Wo Cont; Complete Time: 18:30 kb 09/30 19:23 Order name: Knee Right 3 View XRAY kb 09/30 16:42 Order name: EKG; Complete Time: 16:43 kb 09/30 16:42 Order name: EKG - Nurse/Tech; Complete Time: 16:51 kb 09/30 16:42 Order name: IV Saline Lock; Complete Time: 16:52 kb 09/30 16:42 Order name: Labs collected and sent; Complete Time: 16:52 kb 09/30 16:42 Order name: O2 Per Protocol; Complete Time: 18:25 kb 09/30 16:42 Order name: O2 Sat Monitoring; Complete Time: 18:25 kb 09/30 17:03 Order name: Labs - recollect needed: recollect green top; Complete Time: 18:25 bd Administered Medications: No medications were administered Disposition Summary: 09/30/23 19:59 Discharge Ordered Notes: Location: Home kb Condition: Stable kb Diagnosis - Chest pain, unspecified kb - Pain in right knee kb - Fall on same level from slipping, tripping and stumbling without subsequent kb striking against object Followup: kb - With: Emergency Department - When: As needed - Reason: Worsening of condition Followup: kb - With: Private Physician - When: 2 - 3 days - Reason: Recheck today's complaints, Continuance of care, Re-evaluation by your physician Discharge Instructions: - Discharge Summary Sheet kb - Musculoskeletal Pain kb - Fall Prevention in the Home, Adult, [id number] kb Forms: - Medication Reconciliation Form kb - Thank You Letter kb - Antibiotic Education kb - Prescription Opioid Use kb - Patient Portal Instructions kb - Leadership Thank You Letter kb Addendum: 10/05/2023 10:07 I was immediately available for consultation during this patient's visit. I did not e c2 personally see the patient or guide the patient's care.. Signatures: Dispatcher [employer] Rebecca Barrios, LISSET LEONARD-Julianna Fuchs, Yeimy Valente, RN RN mb9 Rahul Marcus MD MD ec2 Corrections: (The following items were deleted from the chart) 10/01 00:31 09/30 19:20 The patient's problem is reported as dysphasia, slurred speech, kb kb 10/01 00:33 00:30 Patient is a 68-year-old male with a history of diabetes, high cholesterol and kb hypertension who presents for slurred speech earlier today. States he tripped walking out of [employer] on Thursday and tripped again today so he called Dr. Samuel's office and the nurse told him he sounded like his speech was slurred and that he needed to come to the ER. said she did not appreciate any slurred speech. . kb
--- NOTE | 2023-09-30 20:09 | RAD REPORT ---
EXAM DESCRIPTION: RAD - Knee Right 3 View - 09/30/2023 7:34 pm CLINICAL HISTORY: PAIN COMPARISON: No comparisons TECHNIQUE: Right knee, 3 views. FINDINGS: Stable alignment of right total knee arthroplasty with revision of the femoral component. Rounded metallic buttons seen along the medial proximal tibial cortex. Components in satisfactory ali gnment. No periprostatic fracture.Soft tissue swelling or possible mild effusion along the suprapatel lar space. No soft tissue abnormality. IMPRESSION: No acute abnormalities. Satisfactory alignment of revised right total knee arthroplasty.
[2023-09-30 20:16] VITALS: TEMP 97.5
[2023-09-30 20:17] VITALS: BP 117/71; O2SAT 95
[2023-09-30] MEDS ORDERED: DEXTROSE ORAL 40% 15 GM TUBE ONE (22:00)
--- NOTE | 2023-10-01 09:47 | EKG ---
Test Date: 2023-09-30 Test Time: 16:48:17 Trench Digger: RETA MEASUREMENT RESULTS: Intervals: Rate: 59 WV: 152 QRSD: 76 QT: 442 QTc: 437 [place]: P: 29 WV: 152 QRS: 44 T: 27 INTERPRETIVE STATEMENTS: Sinus bradycardia Cannot rule out Anterior infarct, age undetermined Abnormal ECG Compared to ECG 07/16/2022 22:43:06 Myocardial infarct finding now present Accelerated junctional rhythm no longer present Electronically Signed On 10-01-23 09:45:50 CDT by Silver Navarro
== END 2023-09-30 20:09 | disposition home or self-care (01) ==
LOC: ER 16:33
DX: R07.89 Other chest pain (principal); M25.561 Pain in right knee; W01.0XXA Fall on same level from slipping, tripping and stumbling without subsequent striking against object, initial encounter; I10 Essential (primary) hypertension; E11.9 Type 2 diabetes mellitus without complications
CPT/HCPCS: 36415; 70450; 70551; 71045; 80048; 83735; 84484; 85025; 93005; 99284

== ENCOUNTER 2025-08-23 06:26 | Day surgery (SDC) | payer OTHER ==
[2025-08-22 15:57] LABS: Absolute Lymphocytes (CBC) 1.0 K/uL (0.7-4.9); Hematocrit 37.1 % (39.6-49.0); Hemoglobin 12.7 g/dL (13.6-17.9); MCH 28.8 pg (27.0-35.0); MCHC 34.1 g/dL (32.0-36.0); MCV 84.4 fL (80-100); MPV 6.8 fL (7.6-11.3); Nucleated RBC Absolute Count 0.0 (0-0); Nucleated Red Blood Cells % 0.1 % (0-0); RBC Red Blood Cell Count 4.39 M/uL (4.33-5.43); White Blood Count 6.20 thou/uL (4.3-10.9)
[2025-08-22 16:08] LABS: Anion Gap 7.9 mEq/L (5.0-15.0); BUN Blood Urea Nitrogen 16.0 mg/dL (7-18); Glucose Level 122.0 mg/dL (74-106); Potassium 3.9 mEq/L (3.5-5.1)
[2025-08-23] MEDS ORDERED: SUCCINYLCHOLINE 20 MG/ML (10 ML) IV ONE (06:29)
[2025-08-23] MEDS: Ringers Lactate 1,000 ML IV ONE (07:02)
[2025-08-23] MEDS ORDERED: LIDOCAINE 1% MPF 5 ML VIAL ONE (07:36)
[2025-08-23] MEDS ORDERED: Phenylephrine HCl 10 MG/ML 1 ML VIAL ONE (07:36)
[2025-08-23] MEDS ORDERED: FENTANYL CITR 100 MCG/2 ML ONE (07:36)
[2025-08-23] MEDS ORDERED: GLYCOPYRROLATE 0.2 MG/ML SYR ONE (08:10)
[2025-08-23 08:58] VITALS: BP 111/68; TEMP 97; O2SAT 97
== END 2025-08-23 08:40 | disposition home or self-care (01) ==
LOC: OR 06:26
PROVIDERS: ATTEND Surgery
PROC: 0DBK8ZX Excision of Ascending Colon, Via Natural or Artificial Opening Endoscopic, Diagnostic (ICD-10-PCS; principal; 2025-08-23 07:30)
DX: Z12.11 Encounter for screening for malignant neoplasm of colon (principal); K64.4 Residual hemorrhoidal skin tags; K64.8 Other hemorrhoids; K57.30 Diverticulosis of large intestine without perforation or abscess without bleeding; D12.2 Benign neoplasm of ascending colon; Z86.0100 Personal history of colon polyps, unspecified; Z95.5 Presence of coronary angioplasty implant and graft
CPT/HCPCS: 85025; 80048; 36415; 82947 ×2; 88305; 45384; J2704; J2003; J2371; J7120; J0330; J3010